=== PATIENT | female | born 1990 | race Caucasian/White ===

== ENCOUNTER 2018-08-29 14:17 | Emergency (ER) | payer MEDICAID, SELFPAY ==
[2018-08-29 14:17] VITALS: BP 149/95; PULSE 77; RESP 18; TEMP 36.5; O2SAT 100; BMI 29.9
--- NOTE | 2018-08-29 14:21 | RAD_ITS ---
STUDY: X-RAY CHEST REASON FOR EXAM: Female, 28 years old. Acute chest pain TECHNIQUE: PA and lateral views of the chest. COMPARISON: None. FINDINGS: The lungs are clear and expanded. There is no demonstrated pleural abnormality. Normal size heart. Normal mediastinum and melinda. Normal visualized pulmonary arteries. Normal visualized aortic arch and descending thoracic aorta. Normal visualized thoracic spine. Normal visualized ribs, clavicles, and shoulders. There is no demonstrated abnormality of the visualized soft tissue structures of the upper abdomen. RAD/Chest PA and Lateral IMPRESSION: Normal x-ray examination of the chest. Electronically Signed: Fritz Sanches MD at 14:50 EDT , Service support ,
--- NOTE | 2018-08-29 16:13 | EKG12_ITS ---
Test Reason : CP Blood Pressure : / mmHG Vent. Rate : 072 BPM Atrial Rate : 072 BPM P-R Int : 124 ms QRS Dur : 092 ms QT Int : 398 ms P-R-T Axes : -14 044 022 degrees QTc Int : 435 ms Normal sinus rhythm Normal ECG Confirmed by TOO ALFORD, ADOLPH ([id number]), pictures editor RODRIGUEZ JIMENEZ ([id number]) on 08/31/2018 1:34:13 PM Referred By: MAE Confirmed By:ADOLPH GAGE MD
--- NOTE | 2018-08-29 16:13 | VDLE_ITS ---
Reason For Study: PAIN RIGHT GSV is normal. CFV is compressible, spontaneous, phasic, competent and demonstrates normal augmentation. FV is compressible, spontaneous, phasic, competent and demonstrates normal augmentation. POP V is compressible, spontaneous, phasic, competent and demonstrates normal augmentation. T/P Trunk is compressible. PTV is compressible. RT PerV is compressible. Procedure Exam performed portable in ED. A preliminary report was called and/or faxed to ED. Interpretation Summary Deep veins of the right lower extremity are patent and compressible segmentally. There is no evidence of right lower extremity deep vein thrombosis. Valvular competence appears intact within the proximal deep venous system on the right . The right greater saphenous vein appears patent and compressible segmentally. Ordering Physician: Charlie Page Performed By: Devi Molina, RDCS, RVT
--- NOTE | 2018-08-29 16:14 | ED.VISSUMM ---
- ER Visit Summary Date of Service: 08/29/18 Chief Complaint: Chest pain History of Present Illness: The patient is a 28 F continuous substernal dull chest pain since last evening. Intermittent tingling into axilla and down the right fingers. Recent nonproductive cough. No nausea or diaphoresis. No recent travel, surgeries, or immobilizations. No history of PE or DVT. Reports gets charley horses and did have a right lower extremity cramp in the calf 2 days ago that resolved. No history of hypertension, hyper cholesterolemia, diabetes. No tobacco history. No family history of MIs young age. Reports was on oral contraceptives in May when she had her miscarriage. This is her second one. No known history of any clotting disorders. No family history of clotting disorders. Symptoms were improved with ibuprofen with last dose 7 AM this morning. Does report some pain with palpation. Physical Examination: General: Alert and oriented ?3, no acute distress HEENT: Normocephalic, atraumatic. Moist mucosa membranes Neck: supple, nontender. Cardiovascular: Regular rate and rhythm, no murmurs. There is reproducible sternal tenderness, no rash. Respiratory: Normal breath sounds, symmetric, no distress Abdomen: Soft, nontender, nondistended Extremities: Nontender, no edema, pulses intact ?4. There is no calf pain bilaterally no asymmetric swelling. Neuro: no focal neurological deficits. Test Results: Chest x-ray: No acute process. Right lower extremity ultrasound negative for DVT. Hemoglobin 12.2. K 3.6. Creatinine 0.60. Troponin negative. D-dimer less than 0.027. HCG negative. EKG sinus rate of [address] or T wave changes. Emergency Department Course and Treatment: Patient has atypical symptoms. Chest x-ray from triage was negative. However with her recent miscarriage no known diagnosed hypercoagulability disorders. She reports cramping right calf 2 days ago. Workup initiated from cardiac and PE standpoint. Ultrasound of the leg was negative for DVT. D-dimer was negative. Cardiac workup negative. She was treated with Toradol some improvement of symptoms. She reproducible substernal symptoms. Discussed pleurisy from her recent cough along with costochondritis. She will continue her Motrin. She is given follow-up with PCP. Heart score 1, IVIS 0. Signs and symptoms discussed return. All questions were answered. Treatment Plan: [] Disposition: Discharge Impression: 1. Atypical chest pain 2. Pleurisy 3. Costochondritis This note was generated with [employer] dictation software. It may contain incorrect words, spelling, and punctuation that were not noted in review of the chart prior to signing ED Disposition - Plan for ED Patient: Disposition: Home or Assisted Living Diagnosis: Atypical chest pain, Pleurisy, Costochondritis Instructions: ED Chest Pain Costochondritis, ED Chest Pain Pleurisy Referrals: Care Physician,No Primary [Primary Care Provider] - Clovis Rangel MD [STAFF PHYSICIAN] - 3-5 Days
[2018-08-29] MEDS: Ketorolac 30 MG/ML Syringe IV (16:23)
[2018-08-29 16:24] VITALS: BP 137/88; PULSE 86; RESP 25
[2018-08-29 17:16] LABS: Absolute Lymphocyte Count 2.18 X10^3/ul (0.83-4.51); Absolute Neutrophil Count 2.5 X10^3/uL (2.0-7.7); Basophil# 0.01 X10^3/uL; Basophil% 0.2 % (0-1); Eosinophil# 0.05 X10^3/uL; Hematocrit 37.8 % (37-47); Hemoglobin 12.2 g/dl (12.0-15.0); Lymphocyte # 2.18 X10^3/ul (4.0); Lymphocyte % 43.5 % (19-41); Mean Corp Hgb Conc 32.3 g/gl (32-36); Mean Corpuscular Hgb 28.7 pg (27.0-32.0); Mean Corpuscular Volume 88.9 fL (81-99); Mean Platelet Vol. 9.9 fl (6.2-12.0); Monocyte# 0.31 X10^3/uL; Monocyte% 6.2 % (0-10); Neutrophil # 2.45 X10^3/uL (2.7-7.7); Neutrophil % 48.9 % (47-70); Platelet Count 265 K/mm3 (150-450); RBC Distribution Width CV 13.1 % (11.6-14.6); RBC Distribution Width SD 42.2 fl (35.1-43.9); Red Blood Count 4.25 M/mm3 (4.2-5.4)
[2018-08-29 17:17] LABS: POSITIVE COUNT NO; POSITIVE DIFFERENTIAL NO; POSITIVE MORPHOLOGY NO
[2018-08-29 17:18] LABS: International Normalized Ratio 1.1; Prothrombin Time (Protime)PT. 14.1 SECONDS (11.7-14.9)
[2018-08-29 17:19] LABS: Internal QC Validated? YES +Cl - CLEAR BKGD; Pregnancy, Serum, hCG Quali. NEGATIVE Negative
[2018-08-29 17:28] LABS: D-Dimer Quantitative (DVT/PE) < 0.27 FEU/ug/m (0.27-0.49)
[2018-08-29 17:30] LABS: Anion Gap 7 (5-15); BUN 13 mg/dL (7-18); BUN/Creat Ratio 21.7 RATIO (10-20); Calcium,Total 8.6 mg/dL (8.5-10.1); Chloride 108 mmol/L (98-107); EST Glomerular Filtration Rate 125 mL/min (>60); Est Glom Filt Rate - Afr Amer 151 mL/min (>60); Estimated Creatinine Clearance 123.37 ml/min; Glucose 89 mg/dL (74-106); Potassium 3.6 mmol/L (3.5-5.1); Sodium Level 140 mmol/L (136-145)
[2018-08-29 18:11] VITALS: BP 129/92; PULSE 84; PULSE 88; RESP 14; RESP 21; O2SAT 99
[2018-08-29 19:11] VITALS: BP 133/65; PULSE 72; RESP 17; O2SAT 100
--- NOTE | 2018-08-29 19:11 | ED.RN ---
IV DC'ED, CATHETER INTACT, SMALL GAUZE DRESSING PLACED. DISCHARGE INSTRUCTIONS GIVEN TO AND REVIEWED WITH PATIENT, PATIENT DENIES QUESTIONS OR CONCERNS AND VOICES UNDERSTANDING OF DISCHARGE INSTRUCTIONS. PT AMBULATES OUT OF ROOM WITHOUT DIFFICULTY.
== END 2018-08-29 19:12 | disposition home or self-care (01) ==
PROVIDERS: Emergency Provider Emergency Medicine
DX: R09.1 Pleurisy (principal); M94.0 Chondrocostal junction syndrome [Tietze]; R07.89 Other chest pain
CPT/HCPCS: 71046; 80048; 84484; 84703; 85025; 85379; 85610; 85730; 93005; 93971; 96374; 99283; A4216

== ENCOUNTER → 2018-09-09 | Outpatient (CLI) | payer MEDICAID, SELFPAY ==
[2018-09-08 16:04] VITALS: BMI 29.9
== END | disposition home or self-care (01) ==
LOC: LABSPEC 13:52
PROVIDERS: Referring Provider Physician Assistant; Visit Provider Physician Assistant
DX: J02.9 Acute pharyngitis, unspecified (principal)
CPT/HCPCS: 87081

== ENCOUNTER 2018-12-16 09:14 | Emergency (ER) | payer MEDICAID, SELFPAY ==
[2018-09-08 16:04] VITALS: BMI 29.9
[2018-12-16 09:16] VITALS: BP 120/71; PULSE 73; RESP 17; TEMP 36.8; O2SAT 100; BMI 33.0
--- NOTE | 2018-12-16 09:44 | ED.VISSUMM ---
- ER Visit Summary Date of Service: 12/16/18 Chief Complaint: Nausea and vomiting History of Present Illness: The patient is a 28 F presenting with nausea and vomiting. Patient is 8 weeks . She states she had nausea throughout the but now has vomiting and diarrhea as well. She denies vaginal bleeding. She is G6, P2 AB 3. She was advised by her HUMAN FACTORS SCIENTIST to come into the ED for fluids and evaluation. Physical Examination: Vitals are stable. Patient is afebrile. Alert no acute distress. HEENT exam is unremarkable. Neck is supple. Lungs are clear and equal bilaterally. Heart is regular rate and rhythm. Abdomen is soft mild diffuse tenderness, no rebound or guarding. Extremities are unremarkable. Skin is warm and dry. Remainder of exam is unremarkable. Emergency Department Course and Treatment: Patient given IV fluids, Phenergan. Basic metabolic panel is unremarkable. Blood type A positive. hCG quant [id number]. Ultrasound shows Single live uterine gestation with a mean gestational age of 8 weeks and 4 days. 2 cm x 2.1 cm x 2.2 cm cyst in the right ovary. heart rate 154. Patient is feeling improved on reevaluation. Discussed with Dr. Henson. Patient will follow-up as scheduled. She is given a prescription for Phenergan. Advised to return to the ED for worsening complaints. Disposition: Discharge home Impression: Vomiting, diarrhea, This note was generated with [employer] dictation software. It may contain incorrect words, spelling, and punctuation that were not noted in review of the chart prior to signing ED Disposition - Plan for ED Patient: Instructions: Care for a Healthy Baby Prescriptions: proMETHazine tablet [Phenergan] 25 mg PO Q6H PRN PRN #10 tab PRN Reason: Nausea Prescription Printed Referrals: Mary Bryan MD [STAFF PHYSICIAN] -
[2018-12-16 10:26] LABS: Anion Gap 7 (5-15); BUN 6 mg/dL (7-18); BUN/Creat Ratio 12.4 RATIO (10-20); Calcium,Total 8.6 mg/dL (8.5-10.1); Chloride 108 mmol/L (98-107); Creatinine, Serum 0.48 mg/dL (0.55-1.02); EST Glomerular Filtration Rate 160 mL/min (>60); Est Glom Filt Rate - Afr Amer 194 mL/min (>60); Estimated Creatinine Clearance 154.21 ml/min; Glucose 92 mg/dL (74-106); Sodium Level 138 mmol/L (136-145)
[2018-12-16] MEDS: proMETHazine 25 MG/ML Syringe 6.25 MG IV (10:30)
[2018-12-16] MEDS: 0.9% Normal Saline 1,000 ML 999 ML IV (10:31)
--- NOTE | 2018-12-16 10:51 | US_ITS ---
STUDY: FIRST TRIMESTER OBSTETRICAL ULTRASOUND REASON FOR EXAM: Female, 28 years old. Pain/cramping. LMP: October 15, 2018. TECHNIQUE: Transvaginal TECHNICAL QUALITY: Adequate. PRIOR ULTRASOUND: None. FINDINGS: There is visualization of a single gestational sac in a normal intrauterine position. The mean sac diameter (MSD) measures 3.4 mm x 5.2 mm x 1.6 mm, indicating an estimated gestational age (EGA) of 8 weeks, 6 days. The gestational sac shape is within normal limits. There is a visualized yolk sac. The yolk sac measures 5.1 mm. The placenta is non-visualized. There is visualization of a live embryo. The crown-rump length (CRL) measures 1.94 cm, indicating an estimated gestational age (EGA) of 8 weeks, 4 days. There is demonstrated cardiac activity with a heart rate of bpm. The estimated gestation age (EGA) by LMP is 8 weeks, 6 days. The estimated date of delivery (TERI) by LMP is July 22, 2019. The estimated gestation age (EGA) by US is 8 weeks, 4 days. The estimated date of delivery (TERI) by US is July 23, 2019. The uterus measures 9.2 cm x 6.1 cm x 7.5 cm. There is no demonstrated uterine fibroid. The cervix is closed. The right ovary measures 4.8 cm x 2.9 cm x 2.9 cm. There is a 2 cm x 2.1 cm x 2.2 cm cyst within the ovary. There is no visualized right adnexal mass or complex lesion. The left ovary measures 3.7 cm x 2.3 cm x 1.7 cm.. There is no left ovarian cyst. There is no visualized left adnexal mass or complex lesion. There is no fluid in the cul de sac. US/Transvaginal w/Preg US IMPRESSION: Single live uterine gestation with a mean gestational age of 8 weeks and 4 days. 2 cm x 2.1 cm x 2.2 cm cyst in the right ovary. Electronically Signed: Jhonathan Butler, at 14:41 EDT , Service support ,
--- NOTE | 2018-12-16 15:03 | ED.DEP ---
ED Disposition - Plan for ED Patient: Instructions: Care for a Healthy Baby Prescriptions: proMETHazine tablet [Phenergan] 25 mg PO Q6H PRN PRN #10 tablet PRN Reason: Nausea Referrals: Mary Bryan MD [STAFF PHYSICIAN] -
== END 2018-12-16 15:25 | disposition home or self-care (01) ==
LOC: ED 09:46
PROVIDERS: Emergency Provider Emergency Medicine
DX: O26.891 Other specified pregnancy related conditions, first trimester (principal); R19.7 Diarrhea, unspecified; O21.9 Vomiting of pregnancy, unspecified; O34.81 Maternal care for other abnormalities of pelvic organs, first trimester; N83.201 Unspecified ovarian cyst, right side; Z3A.08 8 weeks gestation of pregnancy
CPT/HCPCS: 76817; 80048; 84702; 86900; 86901; 96361; 96374; 99283; J7030; A4216

== ENCOUNTER 2019-03-06 02:40 | Outpatient (CLI) | payer MEDICAID, SELFPAY ==
[2019-01-16 17:49] VITALS: BMI 33.0
[2019-03-06 02:57] VITALS: BMI 34.9
[2019-03-06 03:48] LABS: ROM Internal Control Test YES-OK TO RESULT pt. (Internal QC); ROM Patient Test Negative (Negative)
--- NOTE | 2019-03-22 13:12 | OB.TRI.NOTE ---
History of Present Illness Date of Service: 03/06/19 Was patient seen by the physician?: No Reason For Visit: R/O LABOR Date of Service: 03/06/19 Final TERI: 07/22/19 Gestational age: 20 weeks gestation Allergies prednisone Allergy (Verified 01/16/19 17:49) Swelling Seasonal Allergy (Mild, Uncoded 01/16/19 17:49) unknown - Pertinent Past Medical History Medical History: Past Medical History (Last Reviewed 01/16/19 @ 17:49 by Asmita Camejo) History of wisdom tooth extraction Laboratory Studies: Laboratory Tests 03/06/19 Range/Units 03:00 Vag Amniotic Fld Detect Negative (Negative) NST - FHR Rate Baby A Baseline: + Fhts by doppler Impression/Plan 28-year-old avid 6 para 2 20+ gestational weeks for rule out rupture membranes. Vaginal discharge in . No evidence of spontaneous rupture of membranes or labor. Patient was discharged home with routine instructions. She is to follow-up in the office as scheduled or as needed.
== END 2019-03-06 04:05 | disposition home or self-care (01) ==
LOC: WPOUT 02:44 → WP 02:44
PROVIDERS: Visit Provider Obstetrics & Gynecology
DX: O26.892 Other specified pregnancy related conditions, second trimester (principal); N89.8 Other specified noninflammatory disorders of vagina; Z3A.20 20 weeks gestation of pregnancy
CPT/HCPCS: 84112; 99218; G0378

== ENCOUNTER 2019-06-07 17:25 | Outpatient (CLI) | payer MEDICAID, SELFPAY ==
[2019-04-01 11:04] VITALS: BMI 34.9
[2019-06-07 17:42] VITALS: BMI 37.1
--- NOTE | 2019-06-08 08:49 | OB.TRI.NOTE ---
- Problem List (1) 33 weeks gestation of Status: Acute (2) Multiparous Status: Acute (3) Abdominal pain Status: Acute History of Present Illness Date of Service: 06/07/19 Was patient seen by the physician?: Yes Reason For Visit: CRAMPING Final TERI: 07/22/19 Gestational age: 33 Weeks and 5 Days History of Present Illness: at 33 week gestation presents with sharp shooting vaginal pain. Denies contractions, vaginal bleeding, loss of fluid. Good movement. Allergies prednisone Allergy (Verified 06/07/19 17:43) Swelling Seasonal Allergy (Mild, Uncoded 04/01/19 11:02) unknown - Pertinent Past Medical History Surgical History: Past Surgical History (Last Reviewed 04/01/19 @ 11:04 by Asmita Camejo) History of wisdom tooth extraction NST - FHR Rate Baby A Baseline: 130 Variability:: Moderate Accelerations:: 15 x 15 Decelerations:: None NST Reactive:: Yes FHR Category:: Category I Uterine Activity:: Quiet Impression/Plan Cvx c/t/h NST reactive and reassuring Not in PTL Reviewed pain in and when to call D/c home w/ f/u in office
== END 2019-06-07 18:30 | disposition home or self-care (01) ==
LOC: WPOUT 17:30 → OBT 17:31
PROVIDERS: Referring Provider Obstetrics & Gynecology; Visit Provider Obstetrics & Gynecology
DX: O26.893 Other specified pregnancy related conditions, third trimester (principal); R10.2 Pelvic and perineal pain; Z3A.33 33 weeks gestation of pregnancy
CPT/HCPCS: 59025; 59050; 99218; G0378

== ENCOUNTER 2019-06-13 12:25 | Outpatient (CLI) | payer MEDICAID, SELFPAY ==
[2019-06-13 12:15] VITALS: BP 133/71; TEMP 36.7; BMI 20.9
== END 2019-06-13 12:55 | disposition home or self-care (01) ==
LOC: WPOUT 12:35 → WP 12:36
PROVIDERS: Referring Provider Obstetrics & Gynecology; Visit Provider Obstetrics & Gynecology
DX: Z00.00 Encounter for general adult medical examination without abnormal findings (principal)
CPT/HCPCS: 99218; G0378

== ENCOUNTER 2019-06-13 13:23 | Emergency (ER) | payer MEDICAID, SELFPAY ==
[2019-06-13 12:15] VITALS: BMI 20.9
[2019-06-13 13:24] VITALS: BP 148/82; PULSE 89; RESP 16; TEMP 36.6; O2SAT 99; BMI 37.0
--- NOTE | 2019-06-13 13:30 | ED.RN ---
pt initally triaged. and triggered consulted with er dr when then was taken to OB fro evaluation. she is 34 weeks with sudden onset headache and blurred vision. bp is again elevated in triage. dr hernandez aware.
[2019-06-13 14:00] VITALS: BP 119/70; PULSE 81; RESP 22; O2SAT 99
[2019-06-13 14:09] LABS: Mucous, Urine 0 SEEN /hpf (<or=2+); Red Blood Cells-Urine 0 SEEN /hpf (0-5)
[2019-06-13] MEDS: 0.9% Normal Saline 1,000 ML 1000 ML IV (14:11)
[2019-06-13] MEDS: Metoclopramide 10 MG/2 ML Vial IV (14:11)
[2019-06-13 14:12] LABS: Absolute Lymphocyte Count 2.02 X10^3/uL (0.83-4.51); Absolute Neutrophil Count 6.5 X10^3/uL (2.0-7.7); Basophil# 0.01 X10^3/uL; Basophil% 0.1 % (0-1); Eosinophil# 0.06 X10^3/uL; Eosinophils% 0.7 % (0-5); Hematocrit 35.9 % (37-47); Hemoglobin 11.7 g/dL (12.0-15.0); Lymphocyte # 2.02 X10^3/ul (4.0); Lymphocyte % 22.2 % (19-41); Mean Corp Hgb Conc 32.6 g/dL (32-36); Mean Corpuscular Volume 89.1 fL (81-99); Mean Platelet Vol. 9.5 fl (6.2-12.0); Monocyte% 5.5 % (0-10); NRBC Flagged by Analyzer 0 % (0-5); Neutrophil # 6.47 X10^3/uL (2.7-7.7); Neutrophil % 71.1 % (47-70); Platelet Count 236 K/mm3 (150-450); RBC Distribution Width CV 12.8 % (11.6-14.6); RBC Distribution Width SD 41.9 fl (35.1-43.9); Red Blood Count 4.03 M/mm3 (4.2-5.4); White Blood Count 9.1 K/mm3 (4.4-11.0)
[2019-06-13] MEDS: DiphenhydrAMINE 50 MG/ML Syringe 25 MG IV (14:12)
[2019-06-13 14:21] LABS: Color, Urine Yellow (Yellow); Glucose, Dipstick Normal (Normal); Leukocyte Esterase-Dipstick 100 /ul (Negative); Nitrite-Dipstick Negative (Negative); Occult Blood-Urine Negative /ul (Negative); Protein-Dipstick Negative (Negative); Specific Gravity, Urine 1.015 (1.002-1.030); Urine Bilirubin Dipstick Negative (Negative); Urine Clarity Clear (Clear); Urine Urobilinogen Normal (Normal); Urine pH 6.5 (5.0 - 8.0)
[2019-06-13 14:26] LABS: Ketone-Dipstick 150 mg/dl (Negative)
[2019-06-13 14:29] LABS: ALB/GLOB Ratio 0.7 RATIO (0.9-2.4); AST(SGOT) 12 U/L (15-37); Alanine Aminotransfer ALT/SGPT 19 U/L (13-56); Albumin, Serum 3.2 g/dL (3.2-5.0); Alkaline Phosphatase 140 U/L (45-117); Anion Gap 9 (5-15); BUN 5 mg/dL (7-18); BUN/Creat Ratio 9.9 RATIO (10-20); Calcium,Total 9.1 mg/dL (8.5-10.1); Chloride 104 mmol/L (98-107); EST Glomerular Filtration Rate 152 mL/min (>60); Est Glom Filt Rate - Afr Amer 184 mL/min (>60); Estimated Creatinine Clearance 148.04 ml/min; Globulin 4.5 g/dL (2.2-4.2); Glucose 76 mg/dL (74-106); Potassium 3.6 mmol/L (3.5-5.1); Protein, Total 7.7 g/dL (6.4-8.2); Sodium Level 137 mmol/L (136-145)
[2019-06-13 14:30] VITALS: BP 121/72; PULSE 80; RESP 26; O2SAT 98
[2019-06-13 14:31] LABS: Bacteria 1+ /hpf (None Seen); Squamous Epithelial Cells - UA 0-5 SEEN /hpf (5-10); White Blood Cells 10-25 SEEN /hpf (0-5)
--- NOTE | 2019-06-13 15:06 | ED.VISSUMM ---
- ER Visit Summary Date of Service: 06/13/19 Chief Complaint: [Headache] History of Present Illness: The patient is a 28 F [presents the emergency department with complaint of a headache that started around 11 AM. Patient states the pain came on suddenly. Patient describes it as frontal. Rates it about a 4 5 out of 10. Patient called her HYDROMETEOROLOGY TEACHER because initially the headache started with some blurred vision where she felt like #a blended together. Patient does get frequent headaches. She has had history of migraines. This feels different than other migraines she has had. Patient is concerned because she is and she was worried about eclampsia. She is never had preeclampsia before and she is G6, P2. Patient initially presented to the emergency department then went up to OB where they checked her blood pressure and noted that it was in the 120 systolic so they referred her back to the emergency department.] Physical Examination: [HEENT-PERRLA, EOMI. Cranial nerves II through XII grossly intact. TMs clear. Mucous membranes moist. No adenopathy. Cardiovascular-regular rate and rhythm without murmur or ectopy Lungs-clear to auscultation, chest wall stable without crepitus or subcu emphysema Abdomen-normoactive bowel sounds, soft, nontender, no rebound or rigidity, no peritoneal signs. Extremities-intact ?4, normal range of motion, normal pulses, atraumatic] Test Results: [CBC with differential obtained was normal. Chemistries unremarkable. LFTs were unremarkable. Urinalysis was positive for 10-25 WBCs and +1 bacteria. Urine culture was sent.] heart tones were 162. Emergency Department Course and Treatment: [Patient was medicated with Reglan, Benadryl, and a liter mostly fluid bolus. Her headache is starting to improve significantly. Patient was given Rocephin 1 g IV.] Treatment Plan: [Plan will be to have patient follow-up with her primary care physician 3 to 5 days. I will treat her with Keflex. She is advised to push fluids and return if worsening headache, difficulty with vision, or condition should worsen anyway. At this point I do not feel any imaging is indicated and I discussed this with the patient about potentially obtaining imaging such as CT scan of the brain and possibly MRV to rule out dural venous sinus thrombosis however my suspicion for this is low at this time. If her symptoms persist she may need further imaging. I will discuss with her HYDROMETEOROLOGY TEACHER as well.] Disposition: [Discharged home in stable condition] Impression: [Cephalgia UTI] This note was generated with [employer] dictation software. It may contain incorrect words, spelling, and punctuation that were not noted in review of the chart prior to signing ED Disposition - Plan for ED Patient: Referrals: Care Physician,No Primary [Primary Care Provider] -
--- NOTE | 2019-06-13 15:13 | ED.DEP ---
ED Disposition - Plan for ED Patient: Instructions: HEADACHE, Unspecified, Understanding Urinary Tract Infections (UTIs) Prescriptions: Cephalexin [Keflex] 500 mg PO Q6 #28 cap Transmission Status: Pending to [facility] Referrals: Care Physician,No Primary [Primary Care Provider] - Mary Bryan MD [STAFF PHYSICIAN] - 3-5 Days
[2019-06-13] MEDS: Ceftriaxone 1 GM/50 ML BAG IV (15:22)
[2019-06-13 15:47] VITALS: BP 121/67; PULSE 77; RESP 16; O2SAT 100
== END 2019-06-13 15:49 | disposition home or self-care (01) ==
LOC: ED 13:52
PROVIDERS: Emergency Provider Emergency Medicine
DX: O26.893 Other specified pregnancy related conditions, third trimester (principal); R51 Headache; O23.43 Unspecified infection of urinary tract in pregnancy, third trimester; Z3A.34 34 weeks gestation of pregnancy
CPT/HCPCS: 80053; 81001; 85025; 87086; 87088; 96361; 96374; 96375; 99218; 99284; J7030; J7040; A4216; G0378

== ENCOUNTER 2019-06-22 09:45 | Outpatient (CLI) | payer MEDICAID, SELFPAY ==
[2019-06-22 10:04] VITALS: BMI 37.0
[2019-06-22 10:39] LABS: ROM Internal Control Test YES-OK TO RESULT pt. (Internal QC)
[2019-06-22 10:40] LABS: ROM Patient Test Negative (Negative)
--- NOTE | 2019-06-22 11:18 | US_ITS ---
STUDY: SECOND AND THIRD TRIMESTER OBSTETRICAL ULTRASOUND REASON FOR EXAM: Female, 28 years old URIAH ONLY LMP: October 15, 2018. TECHNIQUE: Transabdominal TECHNICAL QUALITY: Adequate. PRIOR ULTRASOUND: Comparison is made with prior study dated December 16, 2018. FINDINGS: There is a single intrauterine fetus. The fetus is in a cephalic presentation. There is demonstrated cardiac activity with a heart rate of 140 bpm. There is a normal amniotic fluid volume. The largest amniotic fluid pocket measures 2.77 cm. The amniotic fluid index (URIAH) is 6.9 cm. The placenta is anterior in location and is not low lying. There are Grade 0 placental changes. The cervix was not measured. The adnexal regions are not visualized. US/OB Limited (No Biometrics) IMPRESSION: The amniotic fluid index measures in the 2.5 percentile. Electronically Signed: Jhonathan Butler, at 14:55 EST , Service support ,
--- NOTE | 2019-06-22 13:36 | OB.TRI.HP_ITS ---
- Problem List (1) 35 weeks gestation of Status: Acute (2) Vaginal discharge during Status: Acute History of Present Illness Date of Service: 06/22/19 Was patient seen by the physician?: Yes Reason For Visit: RULE OUT LABOR Final TERI: 06/23/19 Gestational age: 39 Weeks and 6 Days History of Present Illness: Presented to the office complaining of pelvic pressure and possible leaking of fluid. No gush of fluid. She states her underwear has felt wet. She is unsure about contractions. movement. In the office she had no pooling on exam, positive nitrazine, negative ferning. Cervix was 1 thick and high. URIAH on ultrasound was 6.5 cm. She was sent over to labor and delivery for mon itoring and further testing. Allergies prednisone Allergy (Verified 06/07/19 17:43) Swelling Seasonal Allergy (Mild, Uncoded 04/01/19 11:02) unknown - Pertinent Past Medical History Surgical History: Past Surgical History (Last Reviewed 04/01/19 @ 11:04 by Asmita Camejo) History of wisdom tooth extraction Laboratory Studies: Laboratory Tests 06/22/19 Range/Units 10:05 Vag Amniotic Fld Detect Negative (Negative) NST - FHR Rate Baby A Baseline: 120 Variability:: Moderate Accelerations:: 15 x 15 Decelerations:: None NST Reactive:: Yes Uterine Activity:: Irritability Impression/Plan Positive nitrazine but negative fern in the office. URIAH was low normal. NST reactive. ROM plus test was negative. URIAH the hospital was 6.8 cm. The patient notes a history of oligohydramnios. We will plan for repeat growth and fluid next week. Discussed return precautions.
== END 2019-06-22 13:30 | disposition home or self-care (01) ==
LOC: WPOUT 09:51 → WP 09:52
PROVIDERS: Referring Provider Obstetrics & Gynecology; Visit Provider Obstetrics & Gynecology
DX: O26.893 Other specified pregnancy related conditions, third trimester (principal); N89.8 Other specified noninflammatory disorders of vagina; Z3A.39 39 weeks gestation of pregnancy
CPT/HCPCS: 59025; 59050; 76815; 84112; 99218; G0378

== ENCOUNTER 2019-07-16 17:08 | Inpatient (IN) | payer MEDICAID, SELFPAY ==
[2019-07-16] VITALS (75 sets, daily range): BP systolic 109–130; BP diastolic 56–87; PULSE 8–118; TEMP 36.1–36.8; O2SAT 81–100; BMI 37.4
--- NOTE | 2019-07-16 17:25 | PCM.HP.OB ---
- Problem List (1) Active labor at term Status: Acute (2) History of recurrent miscarriages Status: Acute (3) History of depression Status: Acute (4) Anxiety during Status: Acute (5) At risk for self harm Status: Acute History Date of Admission: 07/16/19 Final TERI: 07/22/19 Gestational age: 39 Weeks and 1 Days History of this : This is a 29 year-old, G [6], P [2031], at 39w1d gestational age who presents for regular contractions. Upon arrival no initial cervical change but then progressed to 5cm and admitted for active labor. Offers no other complaints today. course complicated by history of recurrent miscarriage, anxiety with thoughts of self mutilation during the and history of depression. Surgical History: Surgical History (Last Reviewed 04/01/19 @ 11:04 by Asmita Camejo) History of wisdom tooth extraction K08.499 Allergies prednisone Allergy (Verified 07/16/19 14:51) Swelling Seasonal Allergy (Mild, Uncoded 04/01/19 11:02) unknown Home Medications: Home Medications Multivitamin Tablet 1 tab PO DAILY 12/16/18 Cholecalciferol (Vitamin D3) [Vitamin D3] 2,000 unit PO DAILY 03/06/19 Citalopram Hydrobromide [Citalopram HBr] 10 mg PO DAILY 06/07/19 Cephalexin [Keflex] 500 mg PO Q6 #28 cap 06/13/19 Smoking Status: Never smoker Alcohol: None Number of Fetus(es): 1 NST - FHR Rate Baby A Baseline: 120 Variability:: Moderate Accelerations:: 15 x 15 Decelerations:: None FHR Category:: Category I Uterine Activity:: every 3 minutes, moderate History Past Pregnancies: Past Pregnancies Delivery Date Name GA/ Weeks Outcome Route Wt Infant Sex Labor Length Anesthesia Delivery Location Provider FOB Expected Infant Delivery Method: Spontaneous Vaginal Review of Systems Constitutional: Denies: Chills, Fever, Weight Change Eyes: Denies: Blurred vision HEENT: Denies: Head Aches, Sinus Congestion, Sinus Drainage Cardiovascular: Denies: Chest Pain, Palpitations Respiratory: Denies: Cough, Shortness of breath at rest, Sputum production Gastrointestinal: Denies: Abdominal Pain, Nausea, Vomiting Genitourinary: Denies: Dysuria Psychiatric: Denies: Anxiety, Depression, Homicidal Ideations, Suicidal Ideations Physical Exam Vitals: Vital Signs Temp Pulse BP Pulse Ox 98.2 F 89 130/87 H 98 07/16/19 14:36 07/16/19 16:43 07/16/19 14:36 07/16/19 16:43 General: Alert, Oriented x3, Cooperative HEENT: Atraumatic, Normocephalic Cardiovascular: Regular rate, Regular Rhythm, No murmurs Lungs: Clear to auscultation, Normal air movement, No rhonchi, No wheeze Abdomen: Bowel Sounds Present, Gravid Extremities:: No edema Neurological: Deep Tendon Reflexes 2+/4 and Symmetrical. Negative for: Clonus COMMUNICATIONS SCIENTIST: Normal external genitalia Estimated gestational size: Appropriate for gestational size Presentation: Cephalic Cervix Dilation (cm): 5 Station: -2 Effacement (%): 80 Assessment/Plan All Active Problems (Last Reviewed 04/01/19 @ 11:04 by Asmita Camejo) 33 weeks gestation of (Acute) Multiparous (Acute) Abdominal pain (Acute) 35 weeks gestation of (Acute) Vaginal discharge during (Acute) Active labor at term (Acute) History of recurrent miscarriages (Acute) History of depression (Acute) Anxiety during (Acute) At risk for self harm (Acute) Pharyngitis (Acute) URI (upper respiratory infection) (Acute) Sinusitis (Acute) Otitis media (Acute) Gastroenteritis (Acute) This is a 29 year-old, G [6], P [2031], at 39w1d gestational age A:Active Labor P: 1) Admit to labor and delivery 2) Routine labs 3) Intermittent auscultation, initial EFM Category 1 and reactive 4) Patient desires unmedicated , ok for shower and nitrous oxide 5) notified of admission and labor status.
[2019-07-16] MEDS: Lactated Ringers 1,000 ML 50 ML IV (17:50)
[2019-07-16 18:12] LABS: Absolute Lymphocyte Count 2.21 X10^3/uL (0.83-4.51); Absolute Neutrophil Count 8.9 X10^3/uL (2.0-7.7); Basophil# 0.02 X10^3/uL; Basophil% 0.2 % (0-1); Eosinophil# 0.08 X10^3/uL; Eosinophils% 0.7 % (0-5); Hematocrit 34.7 % (37-47); Hemoglobin 11.3 g/dL (12.0-15.0); Lymphocyte # 2.21 X10^3/ul (4.0); Lymphocyte % 18.4 % (19-41); Mean Corp Hgb Conc 32.6 g/dL (32-36); Mean Corpuscular Hgb 28.8 pg (27.0-32.0); Mean Corpuscular Volume 88.3 fL (81-99); Mean Platelet Vol. 9.6 fl (6.2-12.0); Monocyte% 5.8 % (0-10); NRBC Flagged by Analyzer 0 % (0-5); Neutrophil # 8.92 X10^3/uL (2.7-7.7); Neutrophil % 74.5 % (47-70); Platelet Count 222 K/mm3 (150-450); RBC Distribution Width CV 12.9 % (11.6-14.6); RBC Distribution Width SD 41.4 fl (35.1-43.9); Red Blood Count 3.93 M/mm3 (4.2-5.4)
[2019-07-16] MEDS: Ondansetron 4 MG/2 ML Vial IV (18:25)
[2019-07-16] MEDS: proCHLORPERazine 10 MG/2 ML Vial IV (18:52)
--- NOTE | 2019-07-16 20:24 | PCM.PN.OB ---
Patient Problems: Active and Suspected Problems (Last Reviewed 04/01/19 @ 11:04 by Asmita Camejo) Active labor at term (Acute) History of recurrent miscarriages (Acute) History of depression (Acute) Anxiety during (Acute) At risk for self harm (Acute) Subjective: Laying on right side in bed, using nitrous for pain relief. at bedside. Objective: FHR 140, moderate variability, accels TOCO: Every 2 minutes, strong VE: 7/80/0, AROM for small amount of clear fluid - Physical Exam Vitals/I&O's: Vital Signs Temp Pulse BP Pulse Ox 97.6 F L 101 H 111/65 100 07/16/19 19:42 07/16/19 20:22 07/16/19 18:06 07/16/19 20:22 Weight: 225 lb Body Mass Index (BMI) 37.4 Laboratory Results 07/16/19 17:50: WBC 12.0 H, RBC 3.93 L, Hgb 11.3 L, Hct 34.7 L, MCV 88.3, MCH 28.8, MCHC 32.6, RDW Std Deviation 41.4, RDW Coeff of Giselle 12.9, Plt Count 222, MPV 9.6, Immature Gran % (Auto) 0.400, Neut % (Auto) 74.5 H, Lymph % (Auto) 18.4 L, Divide % (Auto) 5.8, Eos % (Auto) 0.7, Baso % (Auto) 0.2, Absolute Neuts (auto) 8.9 H, Absolute Lymphs (auto) 2.21, Nucleated RBC % 0 07/16/19 17:50: Blood Type A POSITIVE, Antibody Screen NEGATIVE Current Medications Acetaminophen (Tylenol) 325 - 650 mg PO Q4H PRN PRN PRN Reason: Pain Score 1-3/10 Al Hydroxide/Mg Hydroxide (Mylanta Ii) 15 - 30 ml PO Q4H PRN PRN PRN Reason: INDIGESTION Citric Acid/Sodium Citrate (Bicitra) 30 ml PO X1 PRN PRN Reason: Section Fentanyl Citrate (Sublimaze (100mcg Ampule)) 25 - 50 mcg IV Q2H PRN PRN PRN Reason: Pain Score 4-10/10 Lactated Ringer's () 500 mls @ 999 mls/hr IV .Q31M PRN PRN Reason: Epidural Lactated Ringer's () 500 mls @ 999 mls/hr IV .Q31M PRN PRN Reason: Corrective Measures Lactated Ringer's () 1,000 mls @ 50 mls/hr IV .Q20H NE Last Admin: 07/16/19 17:50 Dose: 50 mls/hr Documented by: Ondansetron HCl (Zofran) 4 mg IV Q4H PRN PRN PRN Reason: NAUSEA Last Admin: 07/16/19 18:25 Dose: 4 mg Documented by: Prochlorperazine Edisylate (Compazine Iv) 10 mg IV Q6H PRN PRN PRN Reason: NAUSEA Last Admin: 07/16/19 18:52 Dose: 10 mg Documented by: Sodium Chloride () 10 - 40 ml IV X1 PRN PRN Reason: SALINE FLUSH Medical Necessity - Tobacco Use Smoking Status: Never smoker Assessment/Plan All Active Problems (Last Reviewed 04/01/19 @ 11:04 by Asmita Camejo) 33 weeks gestation of (Acute) Multiparous (Acute) Abdominal pain (Acute) 35 weeks gestation of (Acute) Vaginal discharge during (Acute) Active labor at term (Acute) History of recurrent miscarriages (Acute) History of depression (Acute) Anxiety during (Acute) At risk for self harm (Acute) Pharyngitis (Acute) URI (upper respiratory infection) (Acute) Sinusitis (Acute) Otitis media (Acute) Gastroenteritis (Acute) A:Active labor progressing Category 1 FHT P: 1) AROM 2) Nitrous for pain management 3) Continuous bedside labor support 4) updated on patient status
[2019-07-16] MEDS: Oxytocin 30 units/NS 500 ml 30 UNITS/500 ML IV.SOLN 334 UNITS IV (21:15)
--- NOTE | 2019-07-16 21:29 | PCM.OPRPT ---
Problem List (1) Active labor at term Status: Acute (2) History of recurrent miscarriages Status: Acute (3) History of depression Status: Acute (4) Anxiety during Status: Acute (5) At risk for self harm Status: Acute (6) Vaginal delivery Status: Acute Vaginal Delivery Maternal Presentation: Active Labor Amniotic Membrane Rupture Type: Artificial Amniotic Fluid Description: Clear Final TERI: 07/22/19 Gestational age: 39 Weeks and 1 Days Date of Procedure: 07/16/19 Pre-Operative Diagnosis: Active Labor Post-Operative Diagnosis: Surgery/ Procedure Performed: Spontaneous Vaginal Delivery Type of Anesthesia: None Description of Procedure: Progressed to completed with strong urge to push. of viable female infant over intact perineum unmedicated. APGARS 8,9. Infant head delivered with body forthcoming. Placed immediately skin to skin on maternal abdomen. Pitocin started for active 3rd stage management. Spontaneous cry, mouth and nares suctioned for secretions. Cord clamped and cut after pulsations ceased by FOB. Placenta delivered spontaneously via bonny, intact, 3 vessel cord. Perineum inspected and intact, no laceration or repair needed. Fundus firm, vaginal sweep completed. EBL 300ml, hemostasis achieved. Sponge and instrument count correct. Family bonding well. Mom and baby stable. notified of delivery. Presentation: Vertex Placental Delivery Description: Spontaneous Placenta Disposition: [facility] Cord Vessel Description: 3 Vessels Cord Entanglement: None Estimated Blood Loss: 300 ml A gender: Female (1 minute): 8 (5 minute): 9 Episiotomy Description: None Laceration: None Medications given after delivery: IV Pitocin Complications: None
[2019-07-16] MEDS: Ibuprofen 600 MG Tablet PO (22:26)
[2019-07-16] MEDS: Citalopram 10 MG Tablet PO (22:44)
[2019-07-17] VITALS (8 sets, daily range): BP systolic 111–137; BP diastolic 58–81; PULSE 64–87; RESP 18; TEMP 36.3–37; O2SAT 98–100
[2019-07-17] MEDS: Acetaminophen 500 MG Tablet 1000 MG PO (03:56)
[2019-07-17 06:31] LABS: Hematocrit 32.5 % (37-47); Hemoglobin 10.8 g/dL (12.0-15.0); Mean Corp Hgb Conc 33.2 g/dL (32-36); Mean Corpuscular Hgb 29.2 pg (27.0-32.0); Mean Corpuscular Volume 87.8 fL (81-99); Mean Platelet Vol. 9.5 fl (6.2-12.0); Platelet Count 213 K/mm3 (150-450); RBC Distribution Width CV 12.8 % (11.6-14.6); RBC Distribution Width SD 40.9 fl (35.1-43.9); White Blood Count 14.4 K/mm3 (4.4-11.0)
[2019-07-17] MEDS: Ibuprofen 600 MG Tablet PO ×3 (07:53→21:10)
[2019-07-17] MEDS: Prenatal Vits Tablet 1 TABLET PO (07:54)
--- NOTE | 2019-07-17 09:05 | PN.OBGYN_ITS ---
Patient Problems: Active and Suspected Problems (Last Reviewed 04/01/19 @ 11:04 by Asmita Camejo) Active labor at term (Acute) History of recurrent miscarriages (Acute) History of depression (Acute) Anxiety during (Acute) At risk for self harm (Acute) Vaginal delivery (Acute) Subjective: Doing well. Ambulating and voiding without difficulty. Tolerating regular diet. She denies lightheadedness, dizziness, chest pain, shortness of breath, leg pain. Lochia normal. She is breast-feeding. - Physical Exam Vitals/I&O's: Vital Signs Temp Pulse Resp BP Pulse Ox 97.6 F L 64 18 125/77 H 98 07/17/19 07:39 07/17/19 07:39 07/17/19 07:39 07/17/19 07:39 07/17/19 04:03 Oxygen Delivery Method Room Air Weight: 225 lb Body Mass Index (BMI) 37.4 Intake and Output for Last 24 Hours 07/15/19 07/16/19 07/17/19 22:59 23:59 23:59 Intake Total Output Total 400 / 400 Balance -400 / -400 General: Alert, No apparent distress HEENT: Atraumatic Abdomen: Soft, Non Tender, - - FF@U-1 Extremities: No Calf Tenderness Skin: No rashes Neurological: Neuro grossly intact Psych/Mental Status: Normal Affect, Appropriate Laboratory Results 07/16/19 17:50: WBC 12.0 H, RBC 3.93 L, Hgb 11.3 L, Hct 34.7 L, MCV 88.3, MCH 28.8, MCHC 32.6, RDW Std Deviation 41.4, RDW Coeff of Giselle 12.9, Plt Count 222, MPV 9.6, Immature Gran % (Auto) 0.400, Neut % (Auto) 74.5 H, Lymph % (Auto) 18.4 L, [place] % (Auto) 5.8, Eos % (Auto) 0.7, Baso % (Auto) 0.2, Absolute Neuts (auto) 8.9 H, Absolute Lymphs (auto) 2.21, Nucleated RBC % 0 07/16/19 17:50: Blood Type A POSITIVE, Antibody Screen NEGATIVE 07/17/19 06:20: WBC 14.4 H, RBC 3.70 L, Hgb 10.8 L, Hct 32.5 L, MCV 87.8, MCH 29.2, MCHC 33.2, RDW Std Deviation 40.9, RDW Coeff of Giselle 12.8, Plt Count 213, MPV 9.5 Current Medications Acetaminophen (Tylenol) 1,000 mg PO Q8H PRN PRN PRN Reason: Pain Score 1-3/10 Last Admin: 07/17/19 03:56 Dose: 1,000 mg Documented by: Bisacodyl (Dulcolax) 10 mg RECTAL UD PRN PRN Reason: If no BM Citalopram Hydrobromide (Celexa) 10 mg PO DAILY@2200 [address] Last Admin: 07/16/19 22:44 Dose: 10 mg Documented by: Dibucaine (Dibucaine) 1 applic TOPICAL TID PRN PRN; Protocol PRN Reason: Discomfort Hydrocortisone (Hytone) 1 applic TOPICAL TID PRN PRN; Protocol PRN Reason: Discomfort Ibuprofen (Motrin) 600 mg PO Q6H PRN PRN PRN Reason: Pain Score 1-3/10 Last Admin: 07/17/19 07:53 Dose: 600 mg Documented by: Methylergonovine Maleate (Methergine) 0.2 mg IM X1 PRN PRN Reason: Excess bleeding/uterine atony Ondansetron HCl (Zofran) 4 mg IV Q4H PRN PRN PRN Reason: Nausea Multivit/Folic Acid/Iron (Prenatabs Fa) 1 tablet PO DAILY@1200 [address] Last Admin: 07/17/19 07:54 Dose: 1 tablet Documented by: Senna/Docusate Sodium (Senokot-S, Dipti-Colace) 1 - 2 tablet PO DAILY PRN PRN PRN Reason: Constipation Simethicone (Mylicon) 80 mg PO PCHS PRN PRN Reason: Indigestion/Stomach pain Sodium Chloride () 5 - 15 ml IV UD PRN PRN Reason: SALINE FLUSH Medical Necessity - Tobacco Use Smoking Status: Never smoker Assessment/Plan All Active Problems (Last Reviewed 04/01/19 @ 11:04 by Asmita Camejo) 33 weeks gestation of (Acute) Multiparous (Acute) Abdominal pain (Acute) 35 weeks gestation of (Acute) Vaginal discharge during (Acute) Active labor at term (Acute) History of recurrent miscarriages (Acute) History of depression (Acute) Anxiety during (Acute) At risk for self harm (Acute) Vaginal delivery (Acute) Pharyngitis (Acute) URI (upper respiratory infection) (Acute) Sinusitis (Acute) Otitis media (Acute) Gastroenteritis (Acute) Is day 1 from a spontaneous vaginal delivery. She is doing well. Breast-feeding. Routine care. Anticipate discharge tomorrow.
--- NOTE | 2019-07-17 16:06 | CASEMGMT ---
Social Work Labor and Delivery Consult received and noted for maternal history of depression. Chart reviewed. Plan to see patient/mother of baby on 07.18.2019 for social work consult. -FIONA Chapin, SEARCH MANAGER
[2019-07-17] MEDS: Citalopram 10 MG Tablet PO (21:10)
[2019-07-18 05:21] VITALS: BP 130/84; PULSE 73; RESP 18; TEMP 36.4; O2SAT 100
[2019-07-18] MEDS: Ibuprofen 600 MG Tablet PO ×2 (07:56→14:21)
--- NOTE | 2019-07-18 07:56 | DCINST_ITS ---
Discharge Diet: No Restrictions Discharge Activity: May Drive, May Shower May resume sexual activity in: 6 weeks Additional Instructions: If you experience any of the following, contact your healthcare provider. * Bleeding that soaks a pad every hour for 2 hours * Fever 100.4 or higher * Unrelieved incision or abdominal pain * Swelling, redness, discharge or bleeding from your incision or episiotomy site * Your incision begins to separate * Problems urinating (including inability to urinate or burning while urinating). * Visual changes * Severe headache * Flu-like symptoms * Pain or redness in one of both of your breasts * Pain, warmth, tenderness or swelling in your legs, especially the calf area * Frequent nausea and vomiting * Symptoms of depression or anxiety If you experience any of the following, call 911 or go to the nearest Emergency Room. * Chest pain * Problems breathing * Seizure activity * Partial or complete paralysis of a body part, slurred speech, weakness or drooping of the face, or a sudden inability to walk or hold your balance Allergies/Adverse Reactions: Allergies prednisone Allergy (Verified 07/16/19 14:51) Swelling Seasonal Allergy (Mild, Uncoded 04/01/19 11:02) unknown Medications to take at Discharge Multivitamin Tablet 1 tab PO DAILY 12/16/18 Cholecalciferol (Vitamin D3) [Vitamin D3] 2,000 unit PO DAILY 03/06/19 Citalopram Hydrobromide [Citalopram HBr] 10 mg PO DAILY 06/07/19 Acetaminophen [Tylenol] 1,000 mg PO Q8H PRN PRN tablet 07/18/19 Ibuprofen [Motrin] 600 mg PO Q6H PRN PRN tablet 07/18/19 Primary Care Physician: Care Physician,No Primary [Primary Care Provider] - Test Results: Test results from this visit will be discussed in further detail at your follow- up appointment, if applicable.
--- NOTE | 2019-07-18 07:56 | PCM.DCVAG ---
Discharge Diet: No Restrictions Discharge Activity: May Drive, May Shower May resume sexual activity in: 6 weeks Additional Instructions: If you experience any of the following, contact your healthcare provider. Bleeding that soaks a pad every hour for 2 hours Fever 100.4 or higher Unrelieved incision or abdominal pain Swelling, redness, discharge or bleeding from your incision or episiotomy site Your incision begins to separate Problems urinating (including inability to urinate or burning while urinating). Visual changes Severe headache Flu-like symptoms Pain or redness in one of both of your breasts Pain, warmth, tenderness or swelling in your legs, especially the calf area Frequent nausea and vomiting Symptoms of depression or anxiety If you experience any of the following, call 911 or go to the nearest Emergency Room. Chest pain Problems breathing Seizure activity Partial or complete paralysis of a body part, slurred speech, weakness or drooping of the face, or a sudden inability to walk or hold your balance Allergies/Adverse Reactions: Allergies prednisone Allergy (Verified 07/16/19 14:51) Swelling Seasonal Allergy (Mild, Uncoded 04/01/19 11:02) unknown Medications to take at Discharge Multivitamin Tablet 1 tab PO DAILY 12/16/18 Cholecalciferol (Vitamin D3) [Vitamin D3] 2,000 unit PO DAILY 03/06/19 Citalopram Hydrobromide [Citalopram HBr] 10 mg PO DAILY 06/07/19 Acetaminophen [Tylenol] 1,000 mg PO Q8H PRN PRN tablet 07/18/19 Ibuprofen [Motrin] 600 mg PO Q6H PRN PRN tablet 07/18/19 Primary Care Physician: Care Physician,No Primary [Primary Care Provider] - Test Results: Test results from this visit will be discussed in further detail at your follow-up appointment, if applicable.
--- NOTE | 2019-07-18 07:56 | PCM.PN.OB ---
Patient Problems: Active and Suspected Problems (Last Reviewed 04/01/19 @ 11:04 by Asmita Camejo) Active labor at term (Acute) History of recurrent miscarriages (Acute) History of depression (Acute) Anxiety during (Acute) At risk for self harm (Acute) Vaginal delivery (Acute) Subjective: No complaints - Physical Exam Vitals/I&O's: Vital Signs Temp Pulse Resp BP Pulse Ox 97.6 F L 73 18 130/84 H 100 07/18/19 05:21 07/18/19 05:21 07/18/19 05:21 07/18/19 05:21 07/18/19 05:21 Oxygen Delivery Method Room Air Weight: 225 lb Body Mass Index (BMI) 37.4 Intake and Output for Last 24 Hours 07/16/19 07/17/19 07/18/19 23:59 23:59 23:59 Intake Total Output Total 400 / 400 Balance -400 / -400 General: Alert, Oriented x3 Abdomen: Soft, Non Tender, Non-Distended - ff mid & below umb Extremities: No Calf Tenderness Current Medications Acetaminophen (Tylenol) 1,000 mg PO Q8H PRN PRN PRN Reason: Pain Score 1-310 Last Admin: 07/17/19 03:56 Dose: 1,000 mg Documented by: Bisacodyl (Dulcolax) 10 mg RECTAL UD PRN PRN Reason: If no BM Citalopram Hydrobromide (Celexa) 10 mg PO DAILY@2200 NE Last Admin: 07/17/19 21:10 Dose: 10 mg Documented by: Dibucaine (Dibucaine) 1 applic TOPICAL TID PRN PRN; Protocol PRN Reason: Discomfort Hydrocortisone (Hytone) 1 applic TOPICAL TID PRN PRN; Protocol PRN Reason: Discomfort Ibuprofen (Motrin) 600 mg PO Q6H PRN PRN PRN Reason: Pain Score 1-3/10 Last Admin: 07/17/19 21:10 Dose: 600 mg Documented by: Methylergonovine Maleate (Methergine) 0.2 mg IM X1 PRN PRN Reason: Excess bleeding/uterine atony Ondansetron HCl (Zofran) 4 mg IV Q4H PRN PRN PRN Reason: Nausea Multivit/Folic Acid/Iron (Prenatabs Fa) 1 tablet PO DAILY@1200 NE Last Admin: 07/17/19 07:54 Dose: 1 tablet Documented by: Senna/Docusate Sodium (Senokot-S, Dipti-Colace) 1 - 2 tablet PO DAILY PRN PRN PRN Reason: Constipation Simethicone (Mylicon) 80 mg PO PCHS PRN PRN Reason: Indigestion/Stomach pain Sodium Chloride () 5 - 15 ml IV UD PRN PRN Reason: SALINE FLUSH Medical Necessity - Tobacco Use Smoking Status: Never smoker Assessment/Plan All Active Problems (Last Reviewed 04/01/19 @ 11:04 by Asmita Camejo) 33 weeks gestation of (Acute) Multiparous (Acute) Abdominal pain (Acute) 35 weeks gestation of (Acute) Vaginal discharge during (Acute) Active labor at term (Acute) History of recurrent miscarriages (Acute) History of depression (Acute) Anxiety during (Acute) At risk for self harm (Acute) Vaginal delivery (Acute) Pharyngitis (Acute) URI (upper respiratory infection) (Acute) Sinusitis (Acute) Otitis media (Acute) Gastroenteritis (Acute) PPD#2 D/c home
[2019-07-18 10:10] VITALS: BP 118/84; PULSE 69; RESP 20; TEMP 36.6; O2SAT 100
[2019-07-18 14:15] VITALS: BP 116/70; PULSE 85; TEMP 36.5; O2SAT 98
[2019-07-18] MEDS: Prenatal Vits Tablet 1 TABLET PO (14:21)
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
--- NOTE | 2019-07-18 16:40 | CASEMGMT ---
Social Work - PHQ9 follow up Labor and Delivery See this underwriter mortgage loan's previous note earlier this date for details of assesssment and more detailed notation about PHQ9. This underwriter mortgage loan completed the depression screen with mother of baby and assessed for suicide risk when completing initial social work assessment. MOB had no active thoughts, plans, or intent to kill herself. MOB was future oriented in conversation with this underwriter mortgage loan, as well as has outpatient providers for counseling and medication management. No other services requested or indicated. See prior social work noted dated 07.18.2019 for further details. -FIONA Chapin, DIESEL RETROFIT INSTALLER
== END 2019-07-18 14:30 | disposition home or self-care (01) | DRG 560 ==
LOC: WPOUT 17:16 → WP 17:16
PROVIDERS: Admitting Provider Advanced Practice Midwife; Visit Provider Advanced Practice Midwife
DX: O99.344 Other mental disorders complicating childbirth (principal); F41.9 Anxiety disorder, unspecified; O26.23 Pregnancy care for patient with recurrent pregnancy loss, third trimester; Z3A.39 39 weeks gestation of pregnancy; Z37.0 Single live birth
CPT/HCPCS: 59025; 59050; 85025; 85027; 86850; 86900; 86901; 99218; J7120; G0378; J2405

== ENCOUNTER 2019-09-21 06:58 | Day surgery (SDC) | payer MEDICAID, SELFPAY ==
[2019-07-16 14:57] VITALS: BMI 37.4
--- NOTE | 2019-09-20 15:45 | PCM.HP.BLA ---
History and Physical Date of Admission: 09/21/19 Mary Turner Physician Specialty: [facility] H&P Signed Encounter Date: 09/20/2019 Expand All Collapse All Hide copied text Zachary for details Falguni Westfall is a 32 year old female who presents for pre op visit. Pt was rescheduled due to covid 19. Patient is scheduled for hysteroscopy, D&C, polypectomy due to abnormal uterine bleeding and endometrial polyp appreciated on pelvic ultrasound. Patient denies any chest pain, shortness of breath, dizziness. Patient would like to proceed with surgery. ? PAST MEDICAL HISTORY PAST MEDICAL HISTORY Diagnosis Date ? Asthma ? ? Fibroids ? ? Sarcoidosis ? PAST SURGICAL HISTORY PAST SURGICAL HISTORY Procedure Laterality Date ? NONE ? ? FAMILY HISTORY FAMILY HISTORY Problem Relation Age of Onset ? other (ms) Mother ? ? other (uterine fibroids) Mother ? ? Heart disease Father ? ? other (PCOS) Sister ? ? other (lukemia) Maternal Grandfather ? SOCIAL HISTORY Social History ? Tobacco Use ? Smoking status: Never Smoker ? Smokeless tobacco: Never Used Substance Use Topics ? Alcohol use: Yes ? ? Comment: social ? Drug use: No CURRENT MEDICATIONS Current Outpatient Medications Medication Sig ? cholecalciferol, vitamin D3, (VITAMIN D3) 4,000 unit cap Take by mouth. ? Omeprazole 40 mg capsule Take 40 mg by mouth once daily. ? No current facility-administered medications for this visit. Allergies As of Date: 09/20/2019 Allergen Noted Reaction BEE STING 05/21/2017 Hives, Swelling, and Shortness of Breath ? Fully Assessed 09/20/2019 ? REVIEW OF SYSTEMS Abdomen: no pain .. Expanded ROS: GENERAL: Negative for fever Allergies and current medication updated:Yes ? EXAM: BP 124/78 Ht 5' 3 (1.60m) Wt 158 lb (71.7kg) LMP 08/26/2019 BMI 28.00 kg/(m^2). GENERAL: pleasant, female in no apparent distress HEENT: Normocephalic and atraumatic NECK: full range of motion DERMATOLOGY: Normal, without lesions, non-icteric and non-hirsute CARDIAC: Regular rate and rhythm CHEST: Clear to auscultation Normal inspiratory effort NEURO: alert and oriented x3,exam grossly non-focal ? ASSESSMENT AND PLAN: Encounter Diagnosis ? ? ICD-10-CM ? 1. Abnormal uterine bleeding (AUB) N93.9 ? 2. Endometrial polyp N84.0 ? 3. Pre-op exam Z01.818 ? 4. Pt has been counseled on risks/benefits and alternatives of surgery including but not limited to anesthesia, bleeding, infection,perforation of uterus with subsequent injury to pelvic structures including bowel, bladder, ureters and vessels. Pt wishes to proceed with surgery at this time. COVID 19 testing preop is pending at [facility] ? The surgeon/proceduralist and patient have discussed in detail the risk of exposure to and/or potential harm posed by the COVID-19 virus with having a surgery/procedure at this time versus the risk of? delaying the surgery/procedure. It is not possible to know either the risk of delaying the surgery or procedure or chance of getting an infection with perfect accuracy, but a joint decision was made between the patient and the surgeon/proceduralist ?to proceed at this time with the scheduled surgery/procedure as indicated on the consent form. ? ? Mary Bryan MD ? Office Visit on 09/20/2019 Essential Procedure Criteria Procedure Essential: No Criteria Note: On 07/25/2019 the [place] Department of Health ([facility]) Public Order signed by [facility] Director Maris Chavez M.D., regarding the Management of Non-Essential Surgeries and Procedures for the purpose of preserving Personal Protective Equipment (PPE) and critical hospital capacity and resources within [place] went into effect as of 07/26/2019 at 5:00PM. According to the [facility] Public Order: This action will remain in full force and effect until the State of Emergency declared by the Governor no longer exists or the Director of the [facility] rescinds or modifies this Order.. This [facility] order stated all non-essential or elective surgeries and procedures that utilize PPE should be delayed unless there is undue risk to the current or future health of a patient. After reviewing the aforementioned [facility] Public Order and the patients clinical case, I have determined that the scheduled procedure meets the criteria to go forward.
[2019-09-21] VITALS (9 sets, daily range): BP systolic 101–123; BP diastolic 66–93; PULSE 16–78; RESP 16; TEMP 36.1–36.3; O2SAT 98–100; BMI 36.7
--- NOTE | 2019-09-21 | FALS_PTH ---
PATIENT: TASHA VASQUEZ [place] [facility] [id number] AGE/SX: 29/F ROOM: RE09/21/[address]: Dr. Mary Bryan, MDDOB: 1990 BED: DIS: 09/21/2019 SPEC #: [id number] RECD: 09/21/19 12:37 STATUS: CHANTE RERadha #: [id number] ALONSO: 09/21/19 00:[address]: Mary Bryan DEPT: SURGICAL PATHOLOGY RECD BY: Celestino Sesay ENTERED: 09/21/19 12:37 SP TYPE: FALL TUBES OTHR DR: No Primary Care Phys Tissues: Fallopian tube Procedures: Surgery Specimen Level II HEADER OPERATION: Laparoscopic salpingectomy PRE-OP DIAGNOSIS: Sterilization TISSUE SUBMITTED: Bilateral fallopian tubes MICROSCOPIC DIAGNOSIS Right and left fallopian tubes, bilateral salpingectomies: Two complete cross-sections of fallopian tubes with no pathologic change. AM:juan 09/22/19 MICROSCOPIC DESCRIPTION Slides are reviewed. GROSS DESCRIPTION Received in fixative is one container labeled with the patient's name and designated bilateral fallopian tubes. The specimen consists of bilateral fallopian tubes including fimbrial ends measuring 6.5 cm in length and 0.5 cm in diameter and 6 cm in length and 0.6 cm in diameter. The fallopian tubes are not identified as right or left. Sections reveal unremarkable cut surfaces. Box Turner sections are submitted in two cassettes with each cassette containing one fallopian tube. / EYAD:juan 09/21/19 TC:4 CPT: 86848 x2
[2019-09-21 07:25] LABS: Internal QC Validated? YES +Cl - CLEAR BKGD; Pregnancy, Urine Negative Negative
[2019-09-21 07:27] LABS: Hematocrit 41.7 % (37-47); Hemoglobin 13.2 g/dL (12.0-15.0); Mean Corp Hgb Conc 31.7 g/dL (32-36); Mean Corpuscular Hgb 28.3 pg (27.0-32.0); Mean Corpuscular Volume 89.5 fL (81-99); Platelet Count 274 K/mm3 (150-450); RBC Distribution Width CV 12.6 % (11.6-14.6); RBC Distribution Width SD 41.1 fl (35.1-43.9); Red Blood Count 4.66 M/mm3 (4.2-5.4); White Blood Count 4.8 K/mm3 (4.4-11.0)
[2019-09-21] MEDS: Lactated Ringers 1,000 ML 100 ML IV (07:32)
[2019-09-21 08:35] LABS: Prothrombin Time (Protime)PT. 13.1 SECONDS (11.7-14.9)
[2019-09-21 08:36] LABS: Partial Thromboplast Time 28.1 Seconds (24.1-36.2)
--- NOTE | 2019-09-21 09:00 | DCINST_ITS ---
Discharge Diet: No Restrictions, - - Increase fluid intake for 48 hours. Discharge Activity: Return to Normal Activity, May Drive - when you are no longer taking narcotic pain medications., May Shower, May Take a Tub Bath - in 7 days., - - Ambulate often the next week after surgery. May resume sexual activity in: 2 weeks Lifting Restrictions: 25 Additional Activity Instructions:: Nothing in the vagina for the next 5 days. Call your doctor if your incision/area has: Continuous Slow Oozing, Sudden Increased Bleeding, Increased Pain/ Swelling, Increased Redness, Foul Smelling Discharge, Swelling at the incision site Call your doctor if you observe: Fever of 101 or Higher Cleanse incision/area with: - - do not pick off skin glue. may shower and let soap and water run over incision sites. dab dry Allergies/Adverse Reactions: Allergies prednisone Allergy (Verified 09/21/19 07:21) Swelling Seasonal Allergy (Mild, Uncoded 09/21/19 07:21) unknown Medications to take at Discharge Multivitamin Tablet 1 tab PO DAILY 12/16/18 Citalopram Hydrobromide [Citalopram HBr] 10 mg PO DAILY 06/07/19 Acetaminophen [Tylenol] 1,000 mg PO Q8H PRN PRN tab 07/18/19 Ibuprofen [Motrin] 600 mg PO Q6H PRN PRN tab 07/18/19 Primary Care Physician: Care Physician,No Primary [Primary Care Provider] - Test Results: Test results from this visit will be discussed in further detail at your follow- up appointment, if applicable. Please Follow Up With: Mary Bryan MD When: 2 weeks
[2019-09-21] MEDS: Bupivacaine Mpf 0.5% 30 ML VIAL (09:03)
--- NOTE | 2019-09-21 09:04 | PCM.OPRPT ---
Report of Operation Date of Procedure: 09/21/19 Pre-Operative Diagnosis: desires sterilization Post-Operative Diagnosis: same Surgery/Procedure Performed:: laparoscopic bilateral salpingectomy Description of Surgical Findings:: normal tubes and ovaries bilaterally packerhead machine operator: Gregory Giles Type of Anesthesia:: General Special Medications: 0.5% marcaine Specimen's removed: bilateral fallopian tubes Drains: none Estimated Blood Loss (mL): <5cc Fluids Replaced: 900 Description of Procedure: After informed consent was obtained patient was taken to the operating room she was placed in supine position she was given anesthesia. She was then placed in the [facility] and she was prepped and draped in normal sterile fashion. Bladder was drained prior to the start of procedure. At this time attention was turned to the vaginal portion where weighted speculum placed at posterior fornix vagina single-tooth tenaculum was used to gently grasp the internal the cervix. uterus was gently sounded to approximately cm. Uterine manipulator was placed without difficulty. Legs then placed in parallel with the abdomen the tenaculum and the weighted speculum were removed. 2 towel clamps were placed at level of umbilicus. Marcaine was injected infraumbilical and a small incision was made. The 5 mm trocar was placed under direct visualization. CO2 gas was used to insufflate the intra-abdominal cavity. Upon inspection no gross abnormalities appreciated- the uterus tubes and ovaries appeared to be normal. At this time then the LLQ and RLQ ports were placed First Marcaine was injected and small incision was made a knife and the 5 mm trocars were placed. At this time then tubes were traced back to the fimbriated ends. Ligasure was used to coagulate and ligate along mesosalpinx bilaterally until tubes removed completely. Good hemostasis was appreciated. At this time procedure was deemed complete successful. The gas was desufflated on from the intra-abdominal cavity. The trochars were removed. Skin was closed using 4-0 Monocryl in a subcutaneous fashion. Dermabond glue was placed. Instrument lap and needle counts were correct ?2. The uterine manipulator was removed. Vaginal sweep was performed it was negative. There were no complications anticipated normal postoperative course for this patient. Grafts/Implants Used: none - Complications none - Admit VTE Documentation VTE Present on Admission: Yes VTE Mechan Device Prophylaxis: SCD's VTE Pharm Prophylaxis ordered?: No
[2019-09-21] MEDS: HYDROcodone Bitartrate/Apap 5/325 Tablet PO (10:03)
== END 2019-09-21 10:44 | disposition home or self-care (01) ==
LOC: SDC 06:59 → AC 07:00
PROVIDERS: Anesthesiology; Referring Provider Obstetrics & Gynecology; Visit Provider Obstetrics & Gynecology
PROC: (CPT 58661; principal; 2019-09-21 08:15)
DX: Z30.2 Encounter for sterilization (principal); J45.909 Unspecified asthma, uncomplicated; Z11.59 Encounter for screening for other viral diseases
CPT/HCPCS: 00840; 58661; 36415; 81025; 85027; 85610; 85730; 87635; 88302; G2023; J7120; J2405; U0002

== ENCOUNTER → 2020-04-12 17:41 | Outpatient (CLI) | payer OTHER, MEDICAID, SELFPAY ==
[2020-04-12 15:30] VITALS: BMI 37.3
== END ==
PROVIDERS: Visit Provider Physician Assistant
DX: Z20.828 Contact with and (suspected) exposure to other viral communicable diseases (principal)
CPT/HCPCS: 87635; U0003

== ENCOUNTER 2020-04-28 11:11 | Emergency (ER) | payer OTHER, MEDICAID, SELFPAY ==
[2020-04-12 15:30] VITALS: BMI 37.3
[2020-04-28 11:11] VITALS: BP 156/82; PULSE 104; RESP 16; TEMP 36.7; O2SAT 100; BMI 37.6
[2020-04-28] MEDS: Ondansetron 4 MG/2 ML Vial IV (11:43)
[2020-04-28 11:54] LABS: Bacteria 0 SEEN /hpf (None Seen); Mucous, Urine 0 SEEN /hpf (<or=2+); Red Blood Cells-Urine 0 SEEN /hpf (0-5); White Blood Cells 0 SEEN /hpf (0-5)
[2020-04-28 11:55] LABS: Absolute Lymphocyte Count 1.66 X10^3/uL (0.83-4.51); Absolute Neutrophil Count 2.7 X10^3/uL (2.0-7.7); Basophil# 0.02 X10^3/uL; Basophil% 0.4 % (0-1); Eosinophil# 0.05 X10^3/uL; Hematocrit 39.2 % (37-47); Lymphocyte # 1.66 X10^3/ul (4.0); Lymphocyte % 34.7 % (19-41); Mean Corp Hgb Conc 33.2 g/dL (32-36); Mean Corpuscular Hgb 28.8 pg (27.0-32.0); Mean Corpuscular Volume 86.7 fL (81-99); Mean Platelet Vol. 10.4 fl (6.2-12.0); Monocyte# 0.35 X10^3/uL; Monocyte% 7.3 % (0-10); NRBC Flagged by Analyzer 0 % (0-5); Neutrophil # 2.69 X10^3/uL (2.7-7.7); Neutrophil % 56.4 % (47-70); Platelet Count 287 K/mm3 (150-450); RBC Distribution Width CV 12.7 % (11.6-14.6); Red Blood Count 4.52 M/mm3 (4.2-5.4); White Blood Count 4.8 K/mm3 (4.4-11.0)
[2020-04-28 11:59] LABS: Internal QC Validated? YES +Cl - CLEAR BKGD; Pregnancy, Urine Negative Negative
[2020-04-28 12:10] LABS: Color, Urine Yellow (Yellow); Glucose, Dipstick Normal (Normal); Ketone-Dipstick Negative (Negative); Leukocyte Esterase-Dipstick Negative /ul (Negative); Nitrite-Dipstick Negative (Negative); Occult Blood-Urine Negative /ul (Negative); Protein-Dipstick Negative (Negative); Urine Bilirubin Dipstick Negative (Negative); Urine Clarity Clear (Clear); Urine Urobilinogen Normal (Normal)
[2020-04-28 12:12] LABS: Squamous Epithelial Cells - UA 0-5 SEEN /hpf (5-10)
[2020-04-28 12:15] LABS: AST(SGOT) 16 U/L (15-37); Alanine Aminotransfer ALT/SGPT 33 U/L (13-56); Albumin, Serum 3.9 g/dL (3.2-5.0); Alkaline Phosphatase 74 U/L (45-117); Anion Gap 7 (5-15); BUN 8 mg/dL (7-18); BUN/Creat Ratio 12.5 RATIO (10-20); Calcium,Total 8.2 mg/dL (8.5-10.1); Chloride 109 mmol/L (98-107); Creatinine, Serum 0.64 mg/dL (0.55-1.02); EST Glomerular Filtration Rate 115 mL/min (>60); Est Glom Filt Rate - Afr Amer 139 mL/min (>60); Estimated Creatinine Clearance 114.61 ml/min; Glucose 89 mg/dL (74-106); Lipase 102 U/L (73-393); Potassium 3.4 mmol/L (3.5-5.1); Protein, Total 7.9 g/dL (6.4-8.2); Sodium Level 140 mmol/L (136-145)
--- NOTE | 2020-04-28 12:30 | ED.VIS.GEN ---
History of Present Illness Chief Complaint: Abd Pain Informant: Patient Narrative: 29-year-old female presenting for the evaluation of abdominal pain. Patient states that yesterday she had a pain in her left calf. She used heat and compression stockings and today was gone. She did not have any swelling. She states that she had Covid diagnosed April 12. She states that she is very afraid of blood clots. She states she woke up this morning and had this central abdominal pain. She had diarrhea and vomiting. No fevers. Nothing seems to make the pain better or worse. She states she is extremely anxious because she has anxiety Past Medical History - Allergies and Home Meds Allergies/Adverse Reactions: Allergies prednisone Allergy (Verified 04/28/20 11:13) Swelling Seasonal Allergy (Mild, Uncoded 04/28/20 11:13) unknown Primary Care Physician: Care Physician,No Primary [Primary Care Provider] - Past Medical History: - - Anxiety Surgical History: - - Tubal ligation Lives: Spouse/ Significant Other, With Family Smoking Status: Never smoker Drugs: None Review of Systems General: Denies: Chills, Fever, Sweats Eyes: Denies: Visual changes - bilaterally, Diplopia ENT: Denies: Rhinorrhea, Sore throat Cardiovascular: Reports: Palpitations. Denies: Chest pain Respiratory: Denies: Dyspnea, Cough, Dyspnea on exertion Gastrointestinal: Reports: Abdominal pain, Nausea, Vomiting, Diarrhea. Denies: Melena, Hematochezia Genitourinary: Denies: Dysuria, Hematuria, Frequency Musculoskeletal: Reports: Extremity Pain. Denies: Back pain Skin: Denies: Rash, Wounds Neurological: Denies: Headache, Weakness, Numbness Psych: Reports: Anxiety. Denies: Suicidal thoughts, Suicidal ideations Physical Exam Vital Signs/Narrative: Vital Signs Temp Pulse Resp BP Pulse Ox 04/28/20 11:11 98.1 F 104 H 16 156/82 H 100 Inital Vital Signs reviewed: Yes General: Well nourished, Well developed, No Acute Distress Head: Normocephalic, Atraumatic Eyes: Perrl, EOMI ENT: Moist mucous membranes, No rhinorrhea Neck: Supple, Nontender Cardiovascular: Regular rate, Regular rhythm, No murmurs Respiratory: No distress, CTA bilaterally, Chest nontender Abdomen: Soft, Nontender, Nondistended, Normal bowel sounds Back: Nontender, Normal Inspection Extremities: Nontender, No edema Skin: Normal color, No rash Neurological: Alert, Oriented x3, Cranial nerves II-XII grossly intact, Normal Strength, Normal Sensation Psychological: Normal affect, Normal Mood Diagnostic/Tx/Re-eval Laboratory Last Values WBC 4.8 K/mm3 (4.4-11.0) 04/28/20 11:40 RBC 4.52 M/mm3 (4.2-5.4) 04/28/20 11:40 Hgb 13.0 g/dL (12.0-15.0) 04/28/20 11:40 Hct 39.2 % (37-47) 04/28/20 11:40 MCV 86.7 fL (81-99) 04/28/20 11:40 MCH 28.8 pg (27.0-32.0) 04/28/20 11:40 MCHC 33.2 g/dL (32-36) 04/28/20 11:40 RDW Std Deviation 40.0 fl (35.1-43.9) 04/28/20 11:40 RDW Coeff of Giselle 12.7 % (11.6-14.6) 04/28/20 11:40 Plt Count 287 K/mm3 (150-450) 04/28/20 11:40 MPV 10.4 fl (6.2-12.0) 04/28/20 11:40 Immature Gran % (Auto) 0.200 % (0.0-0.9) 04/28/20 11:40 Neut % (Auto) 56.4 % (47-70) 04/28/20 11:40 Lymph % (Auto) 34.7 % (19-41) 04/28/20 11:40 [place] % (Auto) 7.3 % (0-10) 04/28/20 11:40 Eos % (Auto) 1.0 % (0-5) 04/28/20 11:40 Baso % (Auto) 0.4 % (0-1) 04/28/20 11:40 Absolute Neuts (auto) 2.7 X10^3/uL (2.0-7.7) 04/28/20 11:40 Absolute Lymphs (auto) 1.66 X10^3/uL (0.83-4.51) 04/28/20 11:40 Nucleated RBC % 0 % (0-5) 04/28/20 11:40 Sodium 140 mmol/L (136-145) 04/28/20 11:40 Potassium 3.4 mmol/L (3.5-5.1) L 04/28/20 11:40 Chloride 109 mmol/L (98-107) H 04/28/20 11:40 Carbon Dioxide 24.0 mmol/L (21.0-32.0) 04/28/20 11:40 Anion Gap 7 (5-15) 04/28/20 11:40 BUN 8 mg/dL (7-18) 04/28/20 11:40 Creatinine 0.64 mg/dL (0.55-1.02) 04/28/20 11:40 Estim Creat Clear Calc 114.61 ml/min 04/28/20 11:40 Est GFR (MDRD) Af Amer 139 mL/min (>60) 04/28/20 11:40 Est GFR (MDRD) Non-Af 115 mL/min (>60) 04/28/20 11:40 BUN/Creatinine Ratio 12.5 RATIO (10-20) 04/28/20 11:40 Glucose 89 mg/dL (74-106) 04/28/20 11:40 Calcium 8.2 mg/dL (8.5-10.1) L 04/28/20 11:40 Total Bilirubin 0.40 mg/dL (0.20-1.00) 04/28/20 11:40 AST 16 U/L (15-37) 04/28/20 11:40 ALT 33 U/L (13-56) 04/28/20 11:40 Alkaline Phosphatase 74 U/L (45-117) 04/28/20 11:40 Total Protein 7.9 g/dL (6.4-8.2) 04/28/20 11:40 Albumin 3.9 g/dL (3.2-5.0) 04/28/20 11:40 Globulin 4.0 g/dL (2.2-4.2) 04/28/20 11:40 Albumin/Globulin Ratio 1.0 RATIO (0.9-2.4) 04/28/20 11:40 Lipase 102 U/L (73-393) 04/28/20 11:40 Urine Color Yellow (Yellow) 04/28/20 11:40 Urine Clarity Clear (Clear) 04/28/20 11:40 Urine pH 8.0 (5.0 - 8.0) 04/28/20 11:40 Ur Specific [place] 1.010 (1.002-1.030) 04/28/20 11:40 Urine Protein Negative mg/dl (Negative) 04/28/20 11:40 Urine Glucose (UA) Normal mg/dl (Normal) 04/28/20 11:40 Urine Ketones Negative mg/dl (Negative) 04/28/20 11:40 Urine Occult Blood Negative /ul (Negative) 04/28/20 11:40 Urine Nitrite Negative (Negative) 04/28/20 11:40 Urine Bilirubin Negative mg/dL (Negative) 04/28/20 11:40 Urine Urobilinogen Normal mg/dl (Normal) 04/28/20 11:40 Ur Leukocyte Esterase Negative /ul (Negative) 04/28/20 11:40 Urine RBC 0 SEEN /hpf (0-5) 04/28/20 11:40 Urine WBC 0 SEEN /hpf (0-5) 04/28/20 11:40 Ur Squamous Epith Cells 0-5 SEEN /hpf (5-10) 04/28/20 11:40 Urine Bacteria 0 SEEN /hpf (None Seen) 04/28/20 11:40 Urine Mucus 0 SEEN /hpf (<or=2+) 04/28/20 11:40 Urine Test Negative Negative 04/28/20 11:40 - Medical Decision Making Basic blood work shows a normal white blood cell count. Urinalysis is normal. test is negative. LFTs and lipase normal. Given that the patient had vomiting and some diarrhea suspect she has more of a viral gastroenteritis. I can recommend some Zofran and rest. Return if worsening or concerns ED Disposition - Plan for ED Patient: Disposition: Home or Assisted Living Diagnosis: Abdominal pain, Gastroenteritis Instructions: ED Gastroenteritis, Viral (Adult) Prescriptions: Ondansetron [Zofran Odt] 4 mg PO Q6H PRN PRN #15 tab PRN Reason: Nausea Prescription Printed
[2020-04-28 12:48] VITALS: BP 121/68; PULSE 74; RESP 15
== END 2020-04-28 13:29 | disposition home or self-care (01) ==
PROVIDERS: Emergency Provider Emergency Medicine
DX: R10.9 Unspecified abdominal pain (principal); K52.9 Noninfective gastroenteritis and colitis, unspecified
CPT/HCPCS: 80053; 81001; 81025; 83690; 85025; 96374; 99283; A4216; J2405

== ENCOUNTER 2020-10-24 05:03 | Emergency (ER) | payer BC, MEDICAID, SELFPAY ==
[2020-10-24 05:05] VITALS: BP 150/102; PULSE 122; RESP 18; TEMP 36.6; O2SAT 100; BMI 37.7
[2020-10-24 05:40] VITALS: BP 153/93; PULSE 100; RESP 18; TEMP 36.5; O2SAT 100
--- NOTE | 2020-10-24 05:40 | RAD_ITS ---
STUDY: X-RAY CHEST REASON FOR EXAM: Female, 30 years old. cough TECHNIQUE: Single AP portable view of the chest. COMPARISON: August 29, 2018. FINDINGS: No focal infiltrates or effusions. No pneumothorax. Normal size heart. Normal mediastinum and melinda. Normal visualized pulmonary arteries. Normal visualized aortic arch and descending thoracic aorta. Normal visualized thoracic spine. Normal visualized ribs, clavicles, and shoulders. There is no demonstrated abnormality of the visualized soft tissue structures of the upper abdomen. RAD/Chest 1 View (Portable) IMPRESSION: Normal x-ray examination of the chest. Electronically Signed: Juan Diego Naylor MD at 6:51 EDT , Service support ,
--- NOTE | 2020-10-24 05:40 | EKG12_ITS ---
Test Reason : COLD S/X Blood Pressure : / mmHG Vent. Rate : 106 BPM Atrial Rate : 106 BPM P-R Int : 138 ms QRS Dur : 088 ms QT Int : 348 ms P-R-T Axes : 035 018 001 degrees QTc Int : 462 ms Sinus tachycardia Otherwise normal ECG Confirmed by ERLIN ALFORD, JD ([id number]), magazine editor RODRIGUEZ JIMENEZ ([id number]) on 10/28/2020 10:59:06 A M Referred By: [facility]SA Confirmed By:TEN KERN MD
--- NOTE | 2020-10-24 05:43 | EX.ED.DYSGE1 ---
HPI History of Present Illness Chief Complaint: Cold Sx Informant: patient Onset/Context/Timing Onset: Days Context: Gradual Onset Narrative Narrative: Patient is a 30-year-old female presenting with viral symptoms. Patient states started having sore throat a couple days ago that progressed to congestion and then into nasal drainage and cough. States her cough has been productive of sputum. She had associated nausea and posttussive emesis. She is also had diarrhea for the past few days. She notes this morning she started having racing of her heart and tightness in her chest. She is also been experiencing night sweats and chills. She states she said decreased appetite but is been very thirsty lately. She has been taking Mucinex with dextromethorphan and phenylephrine in it as well as ibuprofen. She last had a dose at 9 PM last night. She has had multiple children at home that have been sick. She has a daughter that was just diagnosed with croup this week another son that was diagnosed with an ear infection and another child that also had viral symptoms. She does note increased rest of her life with the recent of her [id number] which was quite unexpected. [facility] Medical History Anxiety Home Medications ondansetron 4 mg PO Q6H PRN #12 tab 10/24/20 [Rx Last Taken Unknown] Allergy/AdvReac Type Severity Reaction Status Date / Time prednisone Allergy Swelling Verified 10/24/20 05:04 Seasonal Allergy Mild unknown Uncoded 10/24/20 05:04 Surgical History H/O dilation and curettage History of placement of ear tubes History of wisdom tooth extraction Status post surgical removal of both fallopian tubes Social History Smoking Status: Never smoker alcohol intake: never ROS ROS ED Constitutional Constitutional ED: Reports chills and sweats; Denies fever(s) Eyes Eyes: Denies blurry vision or change in vision ENT ENT ED: Reports rhinorrhea and sore throat; Denies ear pain Cardiovascular Cardiovascular: Reports racing heartbeat and other Details: Chest tightness ; Denies chest pain or palpitations Respiratory/Chest Respiratory/Chest: Reports cough and sputum; Denies dyspnea or dyspnea on exertion Gastrointestinal Gastrointestinal: Reports diarrhea, nausea and vomiting; Denies abdominal pain Genitourinary Genitourinary ED: Denies dysuria or hematuria Musculoskeletal Musculoskeletal: Reports back pain; Denies arthralgias or myalgias Integumentary Denies rash Neurologic Neurologic: Denies headache(s) or weakness Psychiatric Psychiatric: Denies anxiety or depression EXAM Physical Exam Const Vital Signs: 10/24/20 05:05 10/24/20 05:40 10/24/20 06:05 Temperature 97.8 F 97.7 F L Temperature Source Temporal Temporal Pulse Rate 122 H 100 113 H Respiratory Rate 18 18 24 H Respiratory Effort Normal Respiratory Pattern Tachypnea Blood Pressure 150/102 H 153/93 H Blood Pressure Mean 118 113 Pulse Ox 100 100 Oxygen Delivery Method 10/24/20 06:35 10/24/20 06:49 Temperature 97.7 F L 97.8 F Temperature Source Temporal Temporal Pulse Rate 113 H 108 H Respiratory Rate 24 H 16 Respiratory Effort Respiratory Pattern Blood Pressure 153/93 H 117/67 Blood Pressure Mean 113 83 Pulse Ox 100 99 Oxygen Delivery Method Room Air Positive well nourished and well developed General Appearance ED: well developed HEENT Reports moist mucous membranes Negative for tenderness Eyes PERRL and EOMs intact bilaterally Neck supple and no JVD Chest Wall inspection of chest normal Resp normal respiratory effort and clear to auscultation bilaterally Resp Narrative: Bronchial cough on exam Auscultation: Negative for wheezes or diminished lung sounds Cardio regular rhythm and no murmurs Rate: tachycardic GI normal to inspection, nondistended, normoactive bowel sounds Back/Spine no CVA tenderness Extremity normal to inspection General Extremety ED: Negative for edema General Extremity: Negative for edema Neuro oriented x3 Sensorium / Orientation: alert Psych mental status grossly normal Mood & Affect: anxious Skin no rashes or lesions noted MDM MDM MDM Narrative Medical decision making narrative: Patient evaluated for viral URI symptoms. Her presentation is most consistent with bronchitis from a viral infection. She is tachycardic on triage I did obtain an EKG which shows sinus tachycardia. No ST segment changes and she is not having chest pain just some tightness. She is given albuterol nebulizer treatment with improvement of her symptoms. She is given IV fluids. Lab work is largely unremarkable. Troponin is negative. Do not suspect pericarditis/endocarditis. Urinalysis is consistent with some dehydration. Patient is given IV fluids in the emergency room as well as Toradol and Zofran. On reevaluation she has improvement of her symptoms. She be discharged home with symptomatic treatment including albuterol inhaler, Zofran and instructions to continue take [id number] Mucinex and NSAIDs. She is counseled on return precautions. Her Covid test is negative. Lab Data Labs: Laboratory Results - last 24 hr 10/24/20 10/24/20 10/24/20 06:05 06:20 06:27 WBC 10.7 RBC 4.53 Hgb 12.7 Hct 39.8 MCV 87.9 MCH 28.0 MCHC 31.9 L RDW Std Deviation 41.0 RDW Coeff of Giselle 12.7 Plt Count 256 MPV 9.9 Immature Gran % (Auto) 0.300 Neut % (Auto) 80.2 H Lymph % (Auto) 12.[address] [place] % (Auto) 4.9 Eos % (Auto) 1.8 Baso % (Auto) 0.3 Absolute Neuts (auto) 8.6 H Absolute Lymphs (auto) 1.34 Nucleated RBC % 0 Sodium 139 Potassium 3.7 Chloride 107 Carbon Dioxide 24.0 Anion Gap 8 BUN 5 L Creatinine 0.66 Estim Creat Clear Calc 110.11 Est GFR (MDRD) Af Amer 134 Est GFR (MDRD) Non-Af 111 BUN/Creatinine Ratio 7.6 L Glucose 120 H Calcium 8.5 Total Bilirubin 0.70 AST 19 ALT 22 Alkaline Phosphatase 81 Troponin I < 0.015 Total Protein 8.1 Albumin 3.7 Globulin 4.4 H Albumin/Globulin Ratio 0.8 L Lipase 92 Urine Color Yellow Urine Clarity Clear Urine pH 5.0 Ur Specific [place] 1.020 Urine Protein 15 H Urine Glucose (UA) Normal Urine Ketones 50 H Urine Occult Blood 10 H Urine Nitrite Negative Urine Bilirubin Negative Urine Urobilinogen Normal Ur Leukocyte Esterase 25 H Urine RBC 0 SEEN Urine WBC 0-5 SEEN Ur Squamous Epith Cells 0 SEEN Urine Bacteria 1+ Urine Mucus 2+ Urine Test Negative Radiography Chest X-Ray - ED: 1 View, Read by ED Physician, Read by Radiologist and No Acute Disease Diagnostic Testing: Radiology Impression Chest X-Ray 10/24/20 05:40 IMPRESSION: Normal x-ray examination of the chest. Electronically Signed: Juan Diego Naylor MD at 6:51 EDT , Service support , Rhythm Strip Rhythm Strip: Sinus Tach Rate: 106 Ectopy: None EKG Initial EKG: Attestation: I personally reviewed and interpreted this EKG as follows: Interpretation: Sinus Tachycardia Comments: Sinus tachycardia at a rate of 106 Normal axis Normal intervals Normal ST segments Compared to prior EKG on 08/29/2018 patient is not tachycardic but no other acute changes Discharge Plan Triage Chief Complaint: Cold Sx ED Provider: Teresita Moran Dx/Rx/DC Orders Clinical Impression: Acute bronchitis, Viral URI with cough Instructions: ED URI, Viral W/ Wheezing (Adult) Prescriptions: New ondansetron 4 mg tablet,disintegrating 4 mg PO Q6H PRN (Reason: nausea and vomiting) Qty: 12 RF: 0 Primary Care Provider: New Russell Referrals: New Russell DO [Primary Care Provider] - Activity Restrictions/Additional Instructions: Continue to alternate Tylenol and ibuprofen for symptom relief. Continue take Mucinex. Use albuterol inhaler 1 to 2 puffs every 4-6 hours as needed for cough or wheezing. Disposition Disposition: Home, self care
[2020-10-24 06:05] VITALS: PULSE 113; RESP 24
[2020-10-24] MEDS: Albuterol 2.5 MG/3 ML VIAL.NEB. INHALATION (06:05)
[2020-10-24 06:11] LABS: Red Blood Cells-Urine 0 SEEN /hpf (0-5); Squamous Epithelial Cells - UA 0 SEEN /hpf (5-10)
[2020-10-24 06:12] LABS: Color, Urine Yellow (Yellow); Glucose, Dipstick Normal (Normal); Ketone-Dipstick 50 mg/dl (Negative); Leukocyte Esterase-Dipstick 25 /ul (Negative); Nitrite-Dipstick Negative (Negative); Occult Blood-Urine 10 /ul (Negative); Protein-Dipstick 15 mg/dl (Negative); Urine Bilirubin Dipstick Negative (Negative); Urine Clarity Clear (Clear); Urine Urobilinogen Normal (Normal)
[2020-10-24 06:15] LABS: Internal QC Validated? YES +Cl - CLEAR BKGD; Pregnancy, Urine Negative Negative
[2020-10-24 06:18] LABS: Bacteria 1+ /hpf (None Seen); Mucous, Urine 2+ /hpf (<or=2+); White Blood Cells 0-5 SEEN /hpf (0-5)
[2020-10-24 06:27] LABS: Absolute Lymphocyte Count 1.34 X10^3/uL (0.83-4.51); Absolute Neutrophil Count 8.6 X10^3/uL (2.0-7.7); Basophil# 0.03 X10^3/uL; Basophil% 0.3 % (0-1); Eosinophil# 0.19 X10^3/uL; Eosinophils% 1.8 % (0-5); Hematocrit 39.8 % (37-47); Hemoglobin 12.7 g/dL (12.0-15.0); Lymphocyte # 1.34 X10^3/ul (0.83-4.51); Lymphocyte % 12.5 % (19-41); Mean Corp Hgb Conc 31.9 g/dL (32-36); Mean Corpuscular Volume 87.9 fL (81-99); Mean Platelet Vol. 9.9 fl (6.2-12.0); Monocyte# 0.53 X10^3/uL; Monocyte% 4.9 % (0-10); NRBC Flagged by Analyzer 0 % (0-5); Neutrophil # 8.59 X10^3/uL (2.7-7.7); Neutrophil % 80.2 % (47-70); Platelet Count 256 K/mm3 (150-450); RBC Distribution Width CV 12.7 % (11.6-14.6); Red Blood Count 4.53 M/mm3 (4.2-5.4); White Blood Count 10.7 K/mm3 (4.4-11.0)
[2020-10-24 06:35] VITALS: BP 153/93; PULSE 113; RESP 24; TEMP 36.5; O2SAT 100
[2020-10-24] MEDS: 0.9% Normal Saline 1,000 ML 1000 ML IV (06:46)
[2020-10-24] MEDS: Ketorolac 15 MG/ML Vial IV (06:46)
[2020-10-24] MEDS: Ondansetron 4 MG/2 ML Vial IV (06:47)
[2020-10-24 06:49] VITALS: BP 117/67; PULSE 108; RESP 16; TEMP 36.6; O2SAT 99
[2020-10-24 06:57] LABS: ALB/GLOB Ratio 0.8 RATIO (0.9-2.4); AST(SGOT) 19 U/L (15-37); Alanine Aminotransfer ALT/SGPT 22 U/L (13-56); Albumin, Serum 3.7 g/dL (3.2-5.0); Alkaline Phosphatase 81 U/L (45-117); Anion Gap 8 (5-15); BUN 5 mg/dL (7-18); BUN/Creat Ratio 7.6 RATIO (10-20); Calcium,Total 8.5 mg/dL (8.5-10.1); Chloride 107 mmol/L (98-107); Creatinine, Serum 0.66 mg/dL (0.55-1.02); EST Glomerular Filtration Rate 111 mL/min (>60); Est Glom Filt Rate - Afr Amer 134 mL/min (>60); Estimated Creatinine Clearance 110.11 ml/min; Globulin 4.4 g/dL (2.2-4.2); Glucose 120 mg/dL (74-106); Lipase 92 U/L (73-393); Potassium 3.7 mmol/L (3.5-5.1); Protein, Total 8.1 g/dL (6.4-8.2); Sodium Level 139 mmol/L (136-145)
[2020-10-24 08:07] VITALS: BP 123/87; PULSE 100; RESP 18; TEMP 36.6; O2SAT 100
== END 2020-10-24 08:10 | disposition home or self-care (01) ==
PROVIDERS: Emergency Provider Emergency Medicine; PCP Family Medicine
DX: J20.9 Acute bronchitis, unspecified (principal); J06.9 Acute upper respiratory infection, unspecified
CPT/HCPCS: 71045; 80053; 81001; 81025; 83690; 84484; 85025; 87426; 93005; 94640; 94664; 96374; 96375; 99285; J7030; J2405

== ENCOUNTER 2021-03-17 09:43 | Emergency (ER) | payer BC, MEDICAID, SELFPAY ==
[2021-03-17 09:44] VITALS: BP 144/103; PULSE 88; RESP 18; TEMP 36.6; O2SAT 99; BMI 36.6
--- NOTE | 2021-03-17 09:59 | CT_ITS ---
STUDY: CT BRAIN WITHOUT CONTRAST REASON FOR EXAM: Female, 30 years old. 2 day history of migraine headaches. RADIATION DOSAGE (If Supplied By Facility): CTDIvol = ( 44.99 ) mGy, DLP = ( 762.36 ) mGycm TECHNIQUE: Transaxial CT imaging of the brain was performed without administration of intravenous contrast material. Individualized dose optimization techniques were used for this CT. COMPARISON: No relevant priors. FINDINGS: Normal soft tissue structures. Normal calvarium. Normal size ventricles and extra-axial spaces for the patient''s age. Normal white matter tracts of the cerebral hemispheres. Normal basal ganglia and thalami. Normal brainstem. Normal cerebellum. There is no intracranial hemorrhage. There are no findings of an acute ischemic infarction. There is partial opacification of both maxillary sinuses worse on the right side. Partial opacification of the ethmoid sinuses. Nasal septal deviation towards the left side of the midline. CT/Brain/Head without Contrast IMPRESSION: Sinusitis. Electronically Signed: Jhonathan Butler MD at 10:42 EST , Service support ,
--- NOTE | 2021-03-17 10:00 | EX.ED.VIS.HA ---
HPI History of Present Illness Chief Complaint: Headache Narrative Narrative: 30-year-old female presenting with headache. She states it started last evening. She described initially as her typical migraine. She states she normally would take Excedrin for this and sleep. This morning she thought it was getting better however she started to have the headache returned and she had a couple episodes of vomiting. She still some slight blood tingeing in her sputum. Patient states that she can taste this currently. She has not had any epistaxis but feels that she could smell it as well. She also states that she has an atypical area on the left upper side of her scalp which hurts which is not consistent with her previous migraine. She denies any trauma. [facility] Medical History Anxiety Celiac disease Home Medications cholecalciferol (vitamin D3) 25 mcg (1,000 unit) capsule 25 mcg PO DAILY 10/25/20 [History Last Taken Unknown] mv-min-vit C-ascorb Re-Pqw-Vfm-herb #124 333 mg-1.7 mg chewable tablet 1 tab PO DAILY 10/25/20 [History Last Taken Unknown] multivitamin 1 tab PO DAILY 03/17/21 [History Last Taken Unknown] Allergy/AdvReac Type Severity Reaction Status Date / Time prednisone Allergy Swelling Verified 03/17/21 09:46 Seasonal Allergy Mild unknown Uncoded 03/17/21 09:46 Surgical History H/O dilation and curettage History of placement of ear tubes History of wisdom tooth extraction Status post surgical removal of both fallopian tubes Social History Smoking Status: Never smoker alcohol intake: never ROS ROS ED Constitutional Constitutional ED: Denies chills or fever(s) Eyes Eyes: Denies blurry vision or change in vision ENT ENT ED: Denies rhinorrhea or sore throat Cardiovascular Cardiovascular: Denies chest pain or palpitations Respiratory/Chest Respiratory/Chest: Denies cough or dyspnea Gastrointestinal Gastrointestinal: Reports nausea and vomiting; Denies abdominal pain Genitourinary Genitourinary ED: Denies dysuria or hematuria Musculoskeletal Musculoskeletal: Denies arthralgias or myalgias Integumentary Denies Abrasions or rash Neurologic Neurologic: Reports headache(s); Denies paresthesias Psychiatric Psychiatric: Denies anxiety or depression EXAM Physical Exam Const Vital Signs: 03/17/21 09:44 03/17/21 13:42 Temperature 97.9 F Temperature Source Temporal Pulse Rate 88 Respiratory Rate 18 16 Blood Pressure 144/103 H 115/74 Blood Pressure Mean 116 87 Pulse Ox 99 Oxygen Delivery Method Room Air Positive well nourished General Appearance ED: NAD; Negative for pallor HEENT Reports normocephalic and moist mucous membranes atraumatic Eyes PERRL and EOMs intact bilaterally Neck no lymphadenopathy, supple and no meningeal signs Resp normal respiratory effort Cardio regular rate and regular rhythm Neuro oriented x3, CN's II-XII intact bilaterally and no sensory deficits noted Sensorium / Orientation: awake and alert Motor Exam: strength 5/5 throughout Psych mental status grossly normal Skin General Skin Exam: Negative for jaundice or pallor MDM MDM MDM Narrative Medical decision making narrative: Patient given Reglan and Benadryl. After her CT scan was done she did receive Toradol. There appears to be no intracranial abnormality. I suspect that the read for sinusitis on her CT scan is due to her vomiting and eye watering and not due to infection she has not had any fever or purulent drainage. Patient feels improved after treatment. She will be discharged home in stable condition. Impression: 1. Headache Radiography Diagnostic Testing: Clinical Impression(s) from Imaging Studies Brain CT 03/17/21 09:59 IMPRESSION: Sinusitis. Electronically Signed: Jhonathan Butler MD at 10:42 EST , Service support , Discharge Plan Triage Chief Complaint: Headache ED Provider: Troy Stanley Dx/Rx/DC Orders Instructions: ED Headache Unspecified Prescriptions: No Action cholecalciferol (vitamin D3) 25 mcg (1,000 unit) capsule 25 mcg PO DAILY RF: 0 Airborne (ascorbate sodium) 333-1.7 mg tablet,chewable 1 tab PO DAILY RF: 0 multivitamin Tablet 1 tab PO DAILY RF: 0 Primary Care Provider: New Russell Referrals: New Russell DO [Primary Care Provider] - Disposition Disposition: Home, Self Care Discharge Date/Time: 03/17/21 13:43
[2021-03-17] MEDS: DiphenhydrAMINE 50 MG/ML Syringe 25 MG IV (10:15)
[2021-03-17] MEDS: Metoclopramide 10 MG/2 ML Vial IV (10:15)
[2021-03-17] MEDS: Ketorolac 15 MG/ML Vial IV (12:35)
[2021-03-17 13:42] VITALS: BP 115/74; RESP 16
== END 2021-03-17 13:43 | disposition home or self-care (01) ==
PROVIDERS: Emergency Provider Student in an Organized Health Care Education/Training Program; PCP Family Medicine
DX: R51.9 Headache, unspecified (principal)
CPT/HCPCS: 70450; 96361; 96374; 96375; 99283; J7030; A4216

== ENCOUNTER 2021-06-05 11:59 | Emergency (ER) | payer BC, MEDICAID, SELFPAY ==
[2021-06-05 12:00] VITALS: BP 155/91; PULSE 93; RESP 18; TEMP 36.2; O2SAT 100; BMI 35.7
[2021-06-05 12:09] VITALS: O2SAT 99
--- NOTE | 2021-06-05 12:09 | RAD_ITS ---
STUDY: X-RAY CHEST REASON FOR EXAM: Female, 30 years old. Chest pain TECHNIQUE: Single AP portable view of the chest. COMPARISON: Comparison is made with prior study dated 10/24/2020. FINDINGS: EKG electrodes are seen. The lungs are clear and expanded. Scattered calcified granulomas. There is no demonstrated pleural abnormality. Normal size heart. Normal mediastinum and melinda. Normal visualized pulmonary arteries. Normal visualized aortic arch and descending thoracic aorta. Normal visualized thoracic spine. Normal visualized ribs, clavicles, and shoulders. There is no demonstrated abnormality of the visualized soft tissue structures of the upper abdomen. RAD/Chest 1 View (Portable) IMPRESSION: No acute abnormality is seen. Electronically Signed: Jhonathan Butler MD at 13:13 EST ,
--- NOTE | 2021-06-05 12:09 | EKG12_ITS ---
Test Reason : CP Blood Pressure : / mmHG Vent. Rate : 087 BPM Atrial Rate : 087 BPM P-R Int : 126 ms QRS Dur : 090 ms QT Int : 384 ms P-R-T Axes : 041 020 020 degrees QTc Int : 462 ms Normal sinus rhythm Normal ECG Confirmed by MARLENY ALFORD, JOSIAH ([id number]), newspaper editor managing RODRIGUEZ JIMENEZ ([id number]) on 06/09/2021 10:59:06 AM Referred By: ISABELLA Confirmed By:JOSIAH FARMER MD
--- NOTE | 2021-06-05 12:10 | EDS_ITS ---
HPI History of Present Illness Chief Complaint: Chest Pain Informant: patient and spouse/S.O. Narrative Narrative: Here with significant other evaluation chest tightness initially starting yesterday evening while outside. Symptoms subsided yesterday. However this morning while making breakfast symptoms returned around 830 has been intermittent. Will have tightness and would spread to bilateral chest. Is causing her to cough. Denies tobacco history. No family history of MIs at a young age. Denies history of hypertension, diabetes, hypercholesterolemia. No recent travel or surgeries or immobilizations. No history of PE or DVT. She is not on oral contraceptives. She has had a bilateral salpingectomy. Recent diagnosis celiac disease this past summer. Also reports does have history anxiety have this feels different. Took 2 baby aspirin's around 9:00 after talking to her mother. No history of stress test. Symptoms currently subsiding while in the ED. Prior Similar Symptoms: No Recent Illness/Hospitalization: No CVD Risk Factors: Negative for Hypertension, Diabetes, Hypercholesterolemia, Family History 1' </=55 and Smoking PE Risk Factors: Negative for Recent Travel/Surgery, Recent Immobilization, Prior DVT or PE, Cancer and OCP + Smoking + >/=35 [facility] Medical History Anxiety Celiac disease Home Medications cholecalciferol (vitamin D3) 25 mcg (1,000 unit) capsule 25 mcg PO DAILY 10/25/20 [History Last Taken Unknown] mv-min-vit C-ascorb Ly-Zov-Hxx-herb #124 333 mg-1.7 mg chewable tablet 1 tab PO DAILY 10/25/20 [History Last Taken Unknown] multivitamin 1 tab PO DAILY 03/17/21 [History Last Taken Unknown] Allergy/AdvReac Type Severity Reaction Status Date / Time prednisone Allergy Swelling Verified 06/05/21 12:02 Seasonal Allergy Mild unknown Uncoded 06/05/21 12:02 Surgical History H/O dilation and curettage History of placement of ear tubes History of wisdom tooth extraction Status post surgical removal of both fallopian tubes Social History Smoking Status: Never smoker alcohol intake: never ROS ROS ED Constitutional Constitutional ED: Denies chills, fever(s) or sweats Eyes Eyes: Denies change in vision ENT ENT ED: Denies dysphagia or sore throat Cardiovascular Cardiovascular: Reports chest pain; Denies leg edema, palpitations or racing hea rtbeat Respiratory/Chest Respiratory/Chest: Reports cough; Denies dyspnea or dyspnea on exertion Gastrointestinal Gastrointestinal: Denies abdominal pain, diarrhea, nausea or vomiting Genitourinary Genitourinary ED: Denies dysuria, hematuria or urinary frequency Musculoskeletal Musculoskeletal: Denies back pain, extremity pain or neck pain Integumentary Denies rash or wounds Neurologic Neurologic: Denies headache(s), paresthesias or weakness EXAM Physical Exam Const Vital Signs: 06/05/21 12:00 06/05/21 12:09 06/05/21 12:59 Temperature 97.2 F L Temperature Source Temporal Pulse Rate 93 83 Respiratory Rate 18 18 Respiratory Effort Respiratory Pattern Blood Pressure 155/91 H 136/80 H Blood Pressure Mean 112 98 Pulse Ox 100 99 96 Oxygen Delivery Method Room Air Room Air 06/05/21 13:10 06/05/21 15:06 Temperature Temperature Source Pulse Rate 85 Respiratory Rate 16 Respiratory Effort Normal Non-Labored Respiratory Pattern Normal Blood Pressure 132/80 H Blood Pressure Mean Pulse Ox 99 Oxygen Delivery Method Positive well nourished and well developed General Appearance ED: well developed and NAD HEENT Reports moist mucous membranes normocephalic and atraumatic Eyes PERRL, EOMs intact bilaterally and conjunctivae normal General Eye ED: Yes normal appearance of both eyes Neck no lymphadenopathy and supple General: Negative for tenderness Chest Wall Chest: Negative for tenderness Resp normal respiratory effort and normal air movement Resp Narrative: Symmetric breath sounds Effort and Inspection: symmetric chest movement; Negative for respiratory distress Cardio regular rate, regular rhythm and no murmurs Peripheral Pulses: pulses 2+ throughout GI normal to inspection, nondistended, normoactive bowel sounds and non-tender Palpation: Negative for guarding or rebound tenderness present Back/Spine no CVA tenderness and no thoracic nor lumbar tenderness Extremity normal to inspection General Extremety ED: Negative for edema or tenderness General Extremity: Negative for edema Neuro oriented x3 and no sensory deficits noted Sensorium / Orientation: awake and alert Skin no rashes or lesions noted and no wounds Heart Score History: Slightly/Non-Suspicious ECG: Normal Age: </= 45 years Risk Factors: 1 or 2 Risk Factors Troponin: </= Normal Limit Score: 1 MDM MDM MDM Narrative Medical decision making narrative: Patient's EKG cardiac work-up troponin negative x2. Reevaluation symptoms were improved. Chest x-ray 1 view reviewed by myself and read by radiology with no acute process. Heart score is a 1. Discussed with patient follow-up with her PCP for further testing as an outpatient. Return precautions discussed. Patient is being discharged under pandemic conditions under declared global, national and state disaster activation, with limited medical resources. Patient and community understands this. Results discussed in layman's terms to the patient satisfaction. All questions answered in layman's terms. Patient understands importance of follow-up care as directed. Patient has been instructed to return to the ED immediately if new symptoms, problems, or questions occur. We mutually agree with the plan of disposition. The patient understand that they may call or return with any questions or concerns at any time. Lab Data Attestation: I reviewed the patient's lab results. Labs: Laboratory Results - last 24 hr 06/05/21 06/05/21 06/05/21 12:30 12:30 14:10 WBC 8.2 RBC 4.57 Hgb 13.4 Hct 39.4 MCV 86.2 MCH 29.3 MCHC 34.0 RDW Std Deviation 40.7 RDW Coeff of Giselle 13.1 Plt Count 292 MPV 10.0 Immature Gran % (Auto) 0.200 Neut % (Auto) 72.2 H Lymph % (Auto) 21.3 [place] % (Auto) 5.7 Eos % (Auto) 0.4 Baso % (Auto) 0.2 Absolute Neuts (auto) 5.9 Absolute Lymphs (auto) 1.75 Nucleated RBC % 0 Sodium 138 Potassium 3.8 Chloride 109 H Carbon Dioxide 22.0 Anion Gap 7 BUN 10 Creatinine 0.71 Estim Creat Clear Calc 102.36 Est GFR (MDRD) Af Amer 123 Est GFR (MDRD) Non-Af 102 BUN/Creatinine Ratio 14.2 Glucose 109 H Calcium 8.8 Troponin I High Sens < 3 L 5 Radiography Chest X-Ray - ED: 1 View, Read by ED Physician, Read by Radiologist and No Acute Disease Diagnostic Testing: Clinical Impression(s) from Imaging Studies Chest X-Ray 06/05/21 12:09 IMPRESSION: No acute abnormality is seen. Electronically Signed: Jhonathan Butler MD at 13:13 EST , Discharge Plan Triage Chief Complaint: Chest Pain ED Provider: Charlie Page Dx/Rx/DC Orders Clinical Impression: Chest pain Instructions: ED Chest Pain, Uncertain Cause Prescriptions: No Action cholecalciferol (vitamin D3) 25 mcg (1,000 unit) capsule 25 mcg PO DAILY RF: 0 Airborne (ascorbate sodium) 333-1.7 mg tablet,chewable 1 tab PO DAILY RF: 0 multivitamin Tablet 1 tab PO DAILY RF: 0 Primary Care Provider: New Russell Referrals: New Russell DO [Primary Care Provider] - 3-5 Days Disposition Disposition: Home, Self Care Discharge Date/Time: 06/05/21 15:13
[2021-06-05 12:40] LABS: Absolute Lymphocyte Count 1.75 X10^3/uL (0.83-4.51); Absolute Neutrophil Count 5.9 X10^3/uL (2.0-7.7); Basophil# 0.02 X10^3/uL; Basophil% 0.2 % (0-1); Eosinophil# 0.03 X10^3/uL; Eosinophils% 0.4 % (0-5); Hematocrit 39.4 % (37-47); Hemoglobin 13.4 g/dL (12.0-15.0); Lymphocyte # 1.75 X10^3/ul (0.83-4.51); Lymphocyte % 21.3 % (19-41); Mean Corpuscular Hgb 29.3 pg (27.0-32.0); Mean Corpuscular Volume 86.2 fL (81-99); Monocyte# 0.47 X10^3/uL; Monocyte% 5.7 % (0-10); NRBC Flagged by Analyzer 0 % (0-5); Neutrophil # 5.92 X10^3/uL (2.7-7.7); Neutrophil % 72.2 % (47-70); Platelet Count 292 K/mm3 (150-450); RBC Distribution Width CV 13.1 % (11.6-14.6); RBC Distribution Width SD 40.7 fl (35.1-43.9); Red Blood Count 4.57 M/mm3 (4.2-5.4); White Blood Count 8.2 K/mm3 (4.4-11.0)
[2021-06-05 12:59] VITALS: BP 136/80; PULSE 83; RESP 18; O2SAT 96
[2021-06-05 13:00] LABS: Anion Gap 7 (5-15); BUN 10 mg/dL (7-18); BUN/Creat Ratio 14.2 RATIO (10-20); Calcium,Total 8.8 mg/dL (8.5-10.1); Chloride 109 mmol/L (98-107); Creatinine, Serum 0.71 mg/dL (0.55-1.02); EST Glomerular Filtration Rate 102 mL/min (>60); Est Glom Filt Rate - Afr Amer 123 mL/min (>60); Estimated Creatinine Clearance 102.36 ml/min; Glucose 109 mg/dL (74-106); Potassium 3.8 mmol/L (3.5-5.1); Sodium Level 138 mmol/L (136-145); Troponin-I HS < 3 pg/mL (3.0-54.0)
[2021-06-05 14:35] LABS: Troponin-I HS 5 pg/mL (3.0-54.0)
[2021-06-05 15:06] VITALS: BP 132/80; PULSE 85; RESP 16; O2SAT 99
== END 2021-06-05 15:13 | disposition home or self-care (01) ==
PROVIDERS: Emergency Provider Emergency Medicine; PCP Family Medicine; Visit Provider Emergency Medicine
DX: R07.9 Chest pain, unspecified (principal)
CPT/HCPCS: 71045; 80048; 84484; 85025; 93005; 99284; A4216

== ENCOUNTER 2021-11-10 09:25 | Emergency (ER) | payer BC, MEDICAID, SELFPAY ==
[2021-11-10 09:26] VITALS: BP 141/86; PULSE 81; RESP 18; TEMP 36.6; O2SAT 100; BMI 35.7
--- NOTE | 2021-11-10 09:42 | CT_ITS ---
STUDY: CT BRAIN WITHOUT CONTRAST REASON FOR EXAM: Female, 31 years old. Pain RADIATION DOSAGE (If Supplied By Facility): CTDIvol = ( 47.06 ) mGy, DLP = ( 855.03 ) mGycm TECHNIQUE: Transaxial CT imaging of the brain was performed without administration of intravenous contrast material. Individualized dose optimization techniques were used for this CT. COMPARISON: 03/17/2021 FINDINGS: Normal soft tissue structures. Normal calvarium. Normal size ventricles and extra-axial spaces for the patient''s age. Normal white matter tracts of the cerebral hemispheres. Normal basal ganglia and thalami. Normal brainstem. Normal cerebellum. There is no intracranial hemorrhage. There are no findings of an acute ischemic infarction. Normal visualized paranasal sinuses. CT/Brain/Head without Contrast IMPRESSION: Normal unenhanced CT scan of the brain. Electronically Signed: Irving Gonzales MD at 10:24 EDT ,
--- NOTE | 2021-11-10 09:43 | EDS_ITS ---
HPI History of Present Illness Chief Complaint: Headache Narrative Narrative: 31-year-old female with history of migraines presenting with headache. She states it woke her up from sleep at about 8 AM. She states the only thing different she did yesterday was try a new gluten-free beer. She is not had a fever or neck pain. She does express that she is nauseous. Patient states that normally she can get to her migraines without having come to the emergency room. Patient denies any paresthesias anywhere. She is able to move all 4 extremities. She does not report light and sound sensitivity. Patient also reports that her father had a brain aneurysm at 35. [facility] Medical History Acute maxillary sinusitis, unspecified Anxiety Celiac disease Home Medications NK 11/10/21 [History Last Taken Unknown] Allergy/AdvReac Type Severity Reaction Status Date / Time prednisone Allergy Swelling Verified 11/10/21 09:28 Seasonal Allergy Mild unknown Uncoded 11/10/21 09:28 Surgical History H/O dilation and curettage History of placement of ear tubes History of wisdom tooth extraction Status post surgical removal of both fallopian tubes Social History Smoking Status: Never smoker alcohol intake: never ROS ROS ED Constitutional Constitutional ED: Denies chills or fever(s) Eyes Eyes: Denies change in vision or diplopia ENT ENT ED: Denies rhinorrhea or sore throat Cardiovascular Cardiovascular: Denies chest pain or palpitations Respiratory/Chest Respiratory/Chest: Denies cough or dyspnea Gastrointestinal Gastrointestinal: Reports nausea and vomiting; Denies abdominal pain or constipation Genitourinary Genitourinary ED: Denies dysuria or hematuria Musculoskeletal Musculoskeletal: Denies arthralgias Integumentary Denies abscess or Abrasions Neurologic Neurologic: Reports headache(s); Denies paresthesias or weakness Psychiatric Psychiatric: Denies anxiety or depression Endocrine Endocrinology: Denies polydipsia or polyphagia EXAM Physical Exam Const Vital Signs: 11/10/21 09:26 Temperature 98 F Temperature Source Temporal Pulse Rate 81 Respiratory Rate 18 Blood Pressure 141/86 H Blood Pressure Mean 104 Pulse Ox 100 Oxygen Delivery Method Room Air MDM MDM MDM Narrative Medical decision making narrative: Patient presenting with headache. She states it feels like her migraine was worse than usual. Patient given Reglan and Benadryl. Head CT was obtained which is normal. Patient was reevaluated and still had some headache pain. She is given a dose of Toradol. Patient was reevaluated at 12:08 PM and she is sleeping comfortably. She feels she can go home now. She is given return precautions. Impression: 1. Migraine Radiography Diagnostic Testing: Clinical Impression(s) from Imaging Studies Brain CT 11/10/21 09:42 IMPRESSION: Normal unenhanced CT scan of the brain. Electronically Signed: Irving Gonzales MD at 10:24 EDT , Discharge Plan Triage Chief Complaint: Headache ED Provider: Troy Stanley Dx/Rx/DC Orders Instructions: ED, Migraine (Classical) Prescriptions: No Action NK Primary Care Provider: New Russell Referrals: New Russell DO [Primary Care Provider] - Disposition Disposition: Home, Self Care
[2021-11-10] MEDS: DiphenhydrAMINE 50 MG/ML Syringe 25 MG IV (09:57)
[2021-11-10] MEDS: Metoclopramide 10 MG/2 ML Vial IV (09:57)
[2021-11-10] MEDS: 0.9% Normal Saline 1,000 ML 999 ML IV (09:57)
[2021-11-10] MEDS: Ketorolac 15 MG/ML Vial IV (11:13)
[2021-11-10 12:23] VITALS: PULSE 76; RESP 17; O2SAT 100
== END 2021-11-10 12:24 | disposition home or self-care (01) ==
PROVIDERS: Emergency Provider Student in an Organized Health Care Education/Training Program; PCP Family Medicine; Visit Provider Student in an Organized Health Care Education/Training Program
DX: G43.909 Migraine, unspecified, not intractable, without status migrainosus (principal)
CPT/HCPCS: 70450; 96361; 96374; 96375; 99283

== ENCOUNTER 2022-04-22 17:12 | Emergency (ER) | payer BC, MEDICAID, SELFPAY ==
[2022-04-22 17:13] VITALS: BP 148/101; PULSE 112; RESP 18; TEMP 36.3; O2SAT 100; BMI 34.6
--- NOTE | 2022-04-22 17:21 | EKG12_ITS ---
Test Reason : SOB Blood Pressure : / mmHG Vent. Rate : 090 BPM Atrial Rate : 090 BPM P-R Int : 130 ms QRS Dur : 094 ms QT Int : 368 ms P-R-T Axes : 044 033 030 degrees QTc Int : 450 ms Normal sinus rhythm Normal ECG Confirmed by ERLIN ALFORD, JD ([id number]), pictures editor RODRIGUEZ JIMENEZ ([id number]) on 04/24/2022 10:45:50 AM Referred By: Confirmed By:TEN KERN MD
--- NOTE | 2022-04-22 17:25 | EX.ED.DYSGE1 ---
HPI History of Present Illness Chief Complaint: Shortness of Breath Informant: patient Onset/Context/Timing Onset: Yesterday Context: Gradual Onset Timing: Waxes and wanes Current Severity: Mild Maximum Severity: Moderate Narrative Narrative: Patient presents secondary to concern for aspiration pneumonia. Wednesday evening she had a migraine that triggered a vomiting episode. Yesterday she was coughing up a lot of thick sputum and today has a burning sensation on the right side of her chest. No fever or chills. PFSH PFSH Medical History Anxiety Celiac disease Home Medications benzonatate 200 mg capsule 200 mg PO TID PRN cough #30 caps 03/04/22 [Rx Last Taken Unknown] amoxicillin 875 mg-potassium clavulanate 125 mg tablet 1 tab PO BID #20 tabs 04/22/22 [Rx Last Taken Unknown] clindamycin HCl 150 mg capsule 300 mg PO 4X/DAY #80 caps 04/22/22 [Rx Last Taken Unknown] Allergy/AdvReac Type Severity Reaction Status Date / Time Seasonal Allergies: Uncoded Allergy Mild NEEDS Verified 04/22/22 17:15 FOLLOW-UP prednisone Allergy Swelling Verified 04/22/22 17:15 Surgical History H/O dilation and curettage History of placement of ear tubes History of wisdom tooth extraction Status post surgical removal of both fallopian tubes Social History Smoking Status: Never smoker alcohol intake: never ROS ROS ED Constitutional Constitutional ED: Denies chills or fever(s) Eyes Eyes: Denies change in vision or discharge from eye(s) ENT ENT ED: Denies discharge from eye(s), rhinorrhea or sore throat Cardiovascular Cardiovascular: Reports chest pain; Denies palpitations Respiratory/Chest Respiratory/Chest: Reports cough and other Details: Increased chest pain with deep breath. ; Denies dyspnea Gastrointestinal Gastrointestinal: Reports nausea and vomiting; Denies abdominal pain or diarrhea Genitourinary Genitourinary ED: Denies dysuria Musculoskeletal Musculoskeletal: Denies back pain or extremity pain Integumentary Denies Abrasions or rash Neurologic Neurologic: Denies headache(s) or weakness Psychiatric Psychiatric: Denies anxiety or depression Allergic/Immunologic Allergic/Immunologic ED: Denies lip swelling or urticaria EXAM Physical Exam Const Vital Signs: 04/22/22 17:13 04/22/22 17:41 Temperature 97.4 F L Temperature Source Temporal Pulse Rate 112 H Respiratory Rate 18 Respiratory Effort Normal Non-Labored Respiratory Depth Normal Respiratory Pattern Normal Blood Pressure 148/101 H Blood Pressure Mean 116 Pulse Ox 100 Oxygen Delivery Method Room Air Room Air Positive well nourished and well developed General Appearance ED: well developed HEENT Reports normocephalic and head/scalp atraumatic Eyes PERRL and EOMs intact bilaterally Neck supple Chest Wall inspection of chest normal and palpation of chest normal Resp normal respiratory effort and clear to auscultation bilaterally Cardio regular rate and regular rhythm GI normal to inspection, nondistended, normoactive bowel sounds Palpation: soft Back/Spine no CVA tenderness Extremity normal to inspection Neuro oriented x3 and no sensory deficits noted Sensorium / Orientation: alert Motor Exam: strength 5/5 throughout Psych mental status grossly normal Skin no rashes or lesions noted MDM MDM MDM Narrative Medical decision making narrative: Patient placed on threat monitoring analyst. EKG obtained along with 2 view chest x-ray. Radiography Diagnostic Testing: Clinical Impression(s) from Imaging Studies Chest X-Ray 04/22/22 17:28 IMPRESSION: Suspect left lower lobe pulmonary nodule and correlation with CT of the chest with contrast is recommended. Electronically Signed: Irving Gonzales MD at 17:40 EST , EKG Initial EKG: Attestation: I personally reviewed and interpreted this EKG as follows: Interpretation: Sinus Rhythm (Sinus at 90 with no acute ischemia.) Treatment and Re-Evaluation Narrative: 2 view chest x-ray per my interpretation reveals no obvious pneumothorax or pneumomediastinum. Question of possible very early density in the right lower lobe. Radiology interpretation is reviewed and feels there is no focal infiltrate. There is a very tiny pulmonary nodule the left lung that will need follow-up. Test results are discussed with the patient. She certainly has symptoms consistent with an aspiration pneumonia. This can often take a couple days to show up on x-ray so I will go ahead and cover her with antibiotics. I did discuss the pulmonary nodule with her and advised that she will need a repeat chest x-ray in 6 months or other imaging to ensure no change. Return instructions are given. Discharge Plan Triage Chief Complaint: Shortness of Breath ED Provider: Deysi Sofia Dx/Rx/DC Orders Clinical Impression: Aspiration pneumonia Instructions: ED Pneumonia (Adult) Prescriptions: New amoxicillin-pot clavulanate 875-125 mg tablet 1 tab PO BID Qty: 20 0RF clindamycin HCl 150 mg capsule 300 mg PO 4X/DAY Qty: 80 0RF No Action benzonatate 200 mg capsule 200 mg PO TID PRN (Reason: cough) Qty: 30 0RF Primary Care Provider: New Russell Referrals: New Russell DO [Primary Care Provider] - 10-14 Days if not better Disposition Disposition: Home, Self Care
--- NOTE | 2022-04-22 17:28 | RAD_ITS ---
STUDY: X-RAY CHEST REASON FOR EXAM: Female, 31 years old. cough, CP TECHNIQUE: PA and lateral views of the chest. COMPARISON: 06/05/2021 FINDINGS: 1 cm nodular opacity in the lower left lung as seen on the lateral view and correlation with CT the chest with contrast is recommended. There is no demonstrated pleural abnormality. Normal size heart. Normal mediastinum and melinda. Normal visualized pulmonary arteries. Normal visualized aortic arch and descending thoracic aorta. Normal visualized thoracic spine. Normal visualized ribs, clavicles, and shoulders. There is no demonstrated abnormality of the visualized soft tissue structures of the upper abdomen. RAD/Chest PA and Lateral IMPRESSION: Suspect left lower lobe pulmonary nodule and correlation with CT of the chest with contrast is recommended. Electronically Signed: Irving Gonzales MD at 17:40 EST ,
[2022-04-22] MEDS: Amox/Clavulanate 875 MG Tablet PO (18:06)
[2022-04-22] MEDS: Clindamycin HCl 150 MG Capsule 300 MG PO (18:06)
[2022-04-22 18:09] VITALS: RESP 14
== END 2022-04-22 18:10 | disposition home or self-care (01) ==
PROVIDERS: Emergency Provider Emergency Medicine; PCP Family Medicine; Visit Provider Emergency Medicine
DX: J69.0 Pneumonitis due to inhalation of food and vomit (principal)
CPT/HCPCS: 71046; 93005; 99284

== ENCOUNTER 2022-05-26 02:24 | Emergency (ER) | payer BC, MEDICAID, SELFPAY ==
[2022-05-26 02:25] VITALS: BP 148/100; PULSE 97; RESP 15; TEMP 36.6; O2SAT 100; BMI 33.8
--- NOTE | 2022-05-26 02:34 | EKG12_ITS ---
Test Reason : CP Blood Pressure : / mmHG Vent. Rate : 094 BPM Atrial Rate : 094 BPM P-R Int : 134 ms QRS Dur : 098 ms QT Int : 376 ms P-R-T Axes : 055 053 040 degrees QTc Int : 470 ms Normal sinus rhythm Nonspecific ST abnormality Abnormal ECG Confirmed by MARLENY ALFORD, JOSIAH ([id number]), index editor RODRIGUEZ JIMENEZ ([id number]) on 05/27/2022 2:42:03 PM Referred By: ROMERO Confirmed By:JOSIAH FARMER MD
--- NOTE | 2022-05-26 02:34 | RAD_ITS ---
STUDY: X-RAY CHEST REASON FOR EXAM: Female, 31 years old. Left-sided chest pain. TECHNIQUE: AP portable upright COMPARISON: 04/22/2022 CXR FINDINGS: No apparent pneumothorax, pneumonia, pleural effusion, or edema. Cardiac silhouette, melinda and mediastinal contours are within normal limits. No acute osseous abnormality. No evidence of free air under the diaphragm. RAD/Chest 1 View (Portable) IMPRESSION: Negative chest radiograph. Electronically Signed: Jeff Bee MD at 3:06 EST Reading Location ID and State: [facility] / [place] Tel , Service support ,
--- NOTE | 2022-05-26 02:36 | EDS_ITS ---
HPI History of Present Illness Chief Complaint: Chest Pain Informant: patient Onset/Context/Timing Onset: Yesterday Activity at onset: gradual Timing: Waxes and wanes Quality: Positive for Sharp Location: Left Chest Current Severity: Moderate Maximum Severity: Moderate Narrative Narrative: Patient presents secondary to focal left-sided chest pain that she noted last evening. She states has been persistent throughout the night. She thought was a panic attack but is not getting better. She has increased pain with deep breath or cough. She does not feel short of breath. She did fall on the ice a few days ago but states she landed on her buttocks and did not strike her chest against anything. [facility] Medical History Anxiety Celiac disease Home Medications NK 05/26/22 [History Last Taken Unknown] Allergy/AdvReac Type Severity Reaction Status Date / Time Seasonal Allergies: Uncoded Allergy Mild NEEDS Verified 05/26/22 02:29 FOLLOW-UP prednisone Allergy Swelling Verified 05/26/22 02:29 Surgical History H/O dilation and curettage History of placement of ear tubes History of wisdom tooth extraction Status post surgical removal of both fallopian tubes Social History Smoking Status: Never smoker alcohol intake: never ROS ROS ED Constitutional Constitutional ED: Denies chills or fever(s) Eyes Eyes: Denies change in vision or discharge from eye(s) ENT ENT ED: Denies discharge from eye(s), rhinorrhea or sore throat Cardiovascular Cardiovascular: Reports chest pain; Denies palpitations Respiratory/Chest Respiratory/Chest: Denies cough or dyspnea Gastrointestinal Gastrointestinal: Denies abdominal pain, diarrhea, nausea or vomiting Genitourinary Genitourinary ED: Denies difficulty urinating or dysuria Musculoskeletal Musculoskeletal: Denies back pain or extremity pain Integumentary Denies Abrasions or rash Neurologic Neurologic: Denies headache(s) or weakness Endocrine Endocrinology: Denies polydipsia or polyuria Allergic/Immunologic Allergic/Immunologic ED: Denies lip swelling or urticaria EXAM Physical Exam Const Vital Signs: 05/26/22 02:25 05/26/22 02:27 Temperature 97.8 F Temperature Source Temporal Pulse Rate 97 Respiratory Rate 15 Respiratory Effort Normal Non-Labored Respiratory Pattern Normal Blood Pressure 148/100 H Blood Pressure Mean 116 Pulse Ox 100 Oxygen Delivery Method Room Air Positive well nourished and well developed General Appearance ED: well developed HEENT Reports normocephalic and head/scalp atraumatic Eyes PERRL and EOMs intact bilaterally Neck supple Chest Wall inspection of chest normal Chest Narrative: Focal chest wall tenderness over the left anterior chest wall. No crepitus. No overlying skin change. Resp normal respiratory effort and clear to auscultation bilaterally Cardio regular rate and regular rhythm GI normal to inspection, nondistended, normoactive bowel sounds Palpation: soft Back/Spine no CVA tenderness Extremity normal to inspection Neuro oriented x3 and no sensory deficits noted Sensorium / Orientation: alert Motor Exam: strength 5/5 throughout Psych mental status grossly normal Skin no rashes or lesions noted Heart Score History: Slightly/Non-Suspicious ECG: Normal Age: </= 45 years Risk Factors: No Risk Factors Troponin: </= Normal Limit Score: 0 MDM MDM MDM Narrative Medical decision making narrative: Patient given dose of IV Toradol for pain. Patient placed on front desk monitor. EKG, chest x-ray, lab work ordered. Lab Data Attestation: I reviewed the patient's lab results. Labs: Laboratory Results - last 24 hr 05/26/22 05/26/22 05/26/22 02:32 02:32 02:32 WBC 6.9 RBC 4.85 Hgb 13.9 Hct 42.8 MCV 88.2 MCH 28.7 MCHC 32.5 RDW Std Deviation 42.2 RDW Coeff of Giselle 13.0 Plt Count 292 MPV 9.7 Immature Gran % (Auto) 0.300 Neut % (Auto) 49.3 Lymph % (Auto) 42.6 H [place] % (Auto) 6.4 Eos % (Auto) 1.3 Baso % (Auto) 0.1 Absolute Neuts (auto) 3.4 Absolute Lymphs (auto) 2.93 Nucleated RBC % 0 D-Dimer Quant (PE/DVT) < 0.27 L Sodium 138 Potassium 3.3 L Chloride 106 Carbon Dioxide 23.0 Anion Gap 9 BUN 10 Creatinine 0.63 Estim Creat Clear Calc 114.29 Est GFR (MDRD) Af Amer 140 Est GFR (MDRD) Non-Af 116 BUN/Creatinine Ratio 15.9 Glucose 107 H Calcium 9.2 Troponin I High Sens 5 Radiography Chest X-Ray - ED: 1 View, Read by ED Physician, Normal, Heart, Lungs and Mediastinum Diagnostic Testing: Clinical Impression(s) from Imaging Studies Chest X-Ray 05/26/22 02:34 IMPRESSION: Negative chest radiograph. Electronically Signed: Jeff Bee MD at 3:06 EST , EKG Initial EKG: Attestation: I personally reviewed and interpreted this EKG as follows: Interpretation: Sinus Rhythm (Sinus at 94 with no acute ischemia. No significant change when compared to prior study from April 22, 2022.) Treatment and Re-Evaluation Narrative: Repeat evaluation patient is resting comfortably. She states she does feel mildly improved. Test results are discussed with her. CBC and chemistry studies are unremarkable. Troponin is negative and D-dimer is negative. Chest x-ray per my interpretation reveals no evidence of pneumothorax. No focal infiltrate or acute abnormality noted. Radiology interpretation reviewed. Patient encouraged to take anti-inflammatories 3 times a day for the next 3 days. I believe she likely has focal chest wall pain as it is reproducible in one focal area. Return instructions are given. Discharge Plan Triage Chief Complaint: Chest Pain ED Provider: Deysi Sofia Dx/Rx/DC Orders Clinical Impression: Acute chest wall pain Instructions: ED Chest Wall Strain Prescriptions: No Action NK Primary Care Provider: New Russell Referrals: New Russell DO [Primary Care Provider] - 1 Week if not improving Activity Restrictions/Additional Instructions: As discussed, please take anti-inflammatories 3 times a day for the next 3 days. You can take your next dose at 8:30 AM. Disposition Disposition: Home, Self Care
[2022-05-26 02:40] LABS: Absolute Lymphocyte Count 2.93 X10^3/uL (0.83-4.51); Absolute Neutrophil Count 3.4 X10^3/uL (2.0-7.7); Basophil# 0.01 X10^3/uL; Basophil% 0.1 % (0-1); Eosinophil# 0.09 X10^3/uL; Eosinophils% 1.3 % (0-5); Hematocrit 42.8 % (37-47); Hemoglobin 13.9 g/dL (12.0-15.0); Lymphocyte # 2.93 X10^3/ul (0.83-4.51); Lymphocyte % 42.6 % (19-41); Mean Corp Hgb Conc 32.5 g/dL (32-36); Mean Corpuscular Hgb 28.7 pg (27.0-32.0); Mean Corpuscular Volume 88.2 fL (81-99); Mean Platelet Vol. 9.7 fl (6.2-12.0); Monocyte# 0.44 X10^3/uL; Monocyte% 6.4 % (0-10); NRBC Flagged by Analyzer 0 % (0-5); Neutrophil # 3.39 X10^3/uL (2.7-7.7); Neutrophil % 49.3 % (47-70); Platelet Count 292 K/mm3 (150-450); RBC Distribution Width SD 42.2 fl (35.1-43.9); Red Blood Count 4.85 M/mm3 (4.2-5.4); White Blood Count 6.9 K/mm3 (4.4-11.0)
[2022-05-26] MEDS: Ketorolac 30 MG/ML Syringe IV (02:42)
[2022-05-26 02:56] LABS: D-Dimer Quantitative (DVT/PE) < 0.27 FEU/ug/m (0.27-0.49)
[2022-05-26 02:59] LABS: Anion Gap 9 (5-15); BUN 10 mg/dL (7-18); BUN/Creat Ratio 15.9 RATIO (10-20); Calcium,Total 9.2 mg/dL (8.5-10.1); Chloride 106 mmol/L (98-107); Creatinine, Serum 0.63 mg/dL (0.55-1.02); EST Glomerular Filtration Rate 116 mL/min (>60); Est Glom Filt Rate - Afr Amer 140 mL/min (>60); Estimated Creatinine Clearance 114.29 ml/min; Glucose 107 mg/dL (74-106); Potassium 3.3 mmol/L (3.5-5.1); Sodium Level 138 mmol/L (136-145); Troponin-I HS 5 pg/mL (3.0-54.0)
[2022-05-26 03:29] VITALS: BP 141/88; PULSE 78; RESP 18; O2SAT 97
[2022-05-26] MEDS: Potassium Chloride Oral Tablet 20 MEQ 40 MEQ PO (04:03)
[2022-05-26 04:07] VITALS: BP 135/85; PULSE 70; RESP 17; O2SAT 98
== END 2022-05-26 04:08 | disposition home or self-care (01) ==
LOC: ED 03:24
PROVIDERS: Emergency Provider Emergency Medicine; PCP Family Medicine; Visit Provider Emergency Medicine
DX: R07.89 Other chest pain (principal)
CPT/HCPCS: 71045; 80048; 84484; 85025; 85379; 93005; 96374; 99284; A4216

== ENCOUNTER 2022-11-25 06:53 | Emergency (ER) | payer BC, MEDICAID, SELFPAY ==
[2022-11-25 06:55] VITALS: BP 134/89; PULSE 95; RESP 16; TEMP 36.2; O2SAT 99; BMI 38.2
--- NOTE | 2022-11-25 07:08 | CT_ITS ---
STUDY: CT ABDOMEN AND PELVIS WITH CONTRAST - URINARY TRACT REASON FOR EXAM: Female, 32 years old. Right lower quadrant abdominal pain -- IV PO Contrast. CELIAC DISEASE RADIATION DOSAGE (If Supplied By Facility): CTDIvol = ( 14.03 ) mGy, DLP = ( 1091.60 ) mGycm TECHNIQUE: Oral and amp; IV Gastrografin and amp; 100mL Isovue-300 was administered. Transaxial images were obtained from the dome of the diaphragm to the symphysis pubis in the arterial, nephrographic and excretory phases. Multiplanar coronal and sagittal images were reformatted. Individualized Dose Optimization Techniques Were Used For This CT. COMPARISON: None FINDINGS: Significantly calcified 1 cm nodule seen in the posterolateral periphery of the right lung base. The visualized portions of the heart are within normal limits. Normal liver. The patent portal vein diameter is 14.5 mm. Normal gallbladder and extrahepatic biliary system. Normal spleen. Normal pancreas. Normal bilateral adrenal glands. Normal visualized stomach. Normal small intestine. Normal colon. The appendix is visualized and appears normal. Normal abdominal aorta. No retroperitoneal adenopathy. Normal right kidney. Normal left kidney. No hydronephrosis. Normal urinary bladder. Anteverted is normal in size and contour. Endometrial thickness is roughly 16mm Mildly irregular shape, rim-enhancing 2.25 x 2.15 x 1.65 cm structure in the right ovary is consistent with mature follicle. There is a 1 cm midline supraumbilical defect of the anterior abdominal wall, allowing for a 2.45 x 4 x 2.9 cm herniation of fat. Normal osseous structures. CT/Abdomen/Pelvis WITH Contrast IMPRESSION: 1. 2.25 cm mature follicle in the right ovary. Mild endometrial thickening is likely physiologic. 2. 4 cm fat-containing midline supraumbilical hernia. 3. Calcified 1 cm nodule in the posterolateral right lung base. Electronically Signed: Fritz Gallo MD at 9:26 EDT Reading Location ID and State: [id number] / Unknown , Service support ,
--- NOTE | 2022-11-25 07:09 | EDS_ITS ---
HPI HPI - GI History of Present Illness Chief Complaint: Abd Pain Informant: patient Abdominal Pain/Flank Pain Onset: Yesterday Context: Gradual Onset Timing: Continuous Quality: Dull, Sharp (With ambulation) and - (Pulling sensation) Location: RLQ Worsened by: - (Ambulation) Relieved by: Nothing Nausea/Vomiting/Emesis GI Symptom: Positive for Nausea and Vomiting Onset: Today Quality: Positive for Nonbilious; Negative for Blood streaks, Coffee ground or Hematemesis Episodes: 1 Diarrhea/Melena/Hematochezia GI Symptom: Negative for Diarrhea, Melena or Hematochezia Associated Symptoms Associated Symptoms: Negative for Dysuria, Frequency or Hematuria LMP: 3 weeks ago Narrative Narrative: Patient presents with abdominal pain that began last night. Patient states the pain began in the periumbilical area last night. Patient states she was able to take some Tums and go to bed last night. Patient states that when she woke up today her pain is now in the right lower abdomen. Patient states she has dull aching pain in her right lower quadrant. Patient states that when she walks she has sharp, pulling pain that radiates into her groin. Patient admits to some nausea and vomiting. Patient admits to a decreased appetite. Patient denies any hematemesis or coffee-ground emesis. Patient states her emesis was undigested food from dinner last night. Patient states her last meal was approximately 7 PM last night. Patient denies any diarrhea, melena, or hematochezia. Patient denies any dysuria, frequency, or hematuria. Patient states her last menstrual period was approximately 3 weeks ago. [facility] Medical History Acute pharyngitis, unspecified Anxiety Celiac disease Home Medications cetirizine 10 mg capsule (Zyrtec) 10 mg PO DAILY PRN allergy symptoms 08/03/22 [History Last Taken Unknown] multivitamin 1 tab PO DAILY 08/03/22 [History Last Taken Unknown] hydrocodone-acetaminophen 5-325mg 5mg-325mg 1 tab PO Q6H PRN PRN Pain 3 days #10 TABLETS 11/25/22 [Rx Last Taken Unknown] ondansetron 4 mg disintegrating tablet 4 mg PO Q8H PRN PRN Nausea #10 tabs 11/25/22 [Rx Last Taken Unknown] Allergy/AdvReac Type Severity Reaction Status Date / Time Seasonal Allergies: Uncoded Allergy Mild NEEDS Verified 11/25/22 06:54 FOLLOW-UP prednisone Allergy Swelling Verified 11/25/22 06:54 Surgical History H/O dilation and curettage History of placement of ear tubes History of wisdom tooth extraction Status post surgical removal of both fallopian tubes Social History Smoking Status: Never smoker alcohol intake: never ROS ROS ED Constitutional Constitutional ED: Denies chills or fever(s) Eyes Eyes: Denies blurry vision or change in vision ENT ENT ED: Denies rhinorrhea or sore throat Cardiovascular Cardiovascular: Denies chest pain or palpitations Respiratory/Chest Respiratory/Chest: Denies cough or dyspnea Gastrointestinal Gastrointestinal: Reports abdominal pain, nausea and vomiting Genitourinary Genitourinary ED: Denies dysuria or hematuria Musculoskeletal Musculoskeletal: Denies back pain or neck pain Integumentary Denies abscess or rash Neurologic Neurologic: Denies headache(s) or weakness Allergic/Immunologic Allergic/Immunologic ED: Denies mouth swelling or urticaria EXAM Physical Exam Const Vital Signs: 11/25/22 06:55 Temperature 97.1 F L Temperature Source Temporal Pulse Rate 95 Respiratory Rate 16 Blood Pressure 134/89 H Blood Pressure Mean 104 Pulse Ox 99 Positive well nourished, well developed and obese General Appearance ED: well developed and NAD Nutritional Appearance: obese HEENT Reports moist mucous membranes Neck supple and no JVD Resp normal respiratory effort and clear to auscultation bilaterally Cardio regular rate and regular rhythm GI non-distended Auscultation: hypoactive bowel sounds Palpation: soft and tender RLQ, suprapubic, Obturator sign (Negative) and Rovsing's sign (Negative); Negative for guarding or rebound tenderness present Extremity normal to inspection General Extremety ED: Negative for edema or tenderness General Extremity: Negative for edema Neuro oriented x3, CN's II-XII intact bilaterally and no sensory deficits noted Sensorium / Orientation: alert Motor Exam: strength 5/5 throughout Psych mental status grossly normal Skin no rashes or lesions noted MDM MDM MDM Narrative Medical decision making narrative: Differential diagnosis includes appendicitis, ectopic , ovarian cyst, gastroenteritis, mesenteric adenitis, ureteral calculus, and urinary tract infection. CT scan of the abdomen pelvis will be obtained to assess for appendicitis, ureteral calculus, and ovarian cyst. CBC will be obtained to assess for leukocytosis and anemia. Comprehensive metabolic profile will be obtained to assess for electrolyte abnormality, renal function, and hepatic function. Urinalysis will be obtained to assess for urinary tract infection and hematuria. Serum hCG will be obtained to assess for . History & Record Review Discussion w/independent historian: Patient Lab Data Attestation: I reviewed the patient's lab results. Lab results narrative: CBC was reviewed and was within normal limits. Comprehensive metabolic profile was reviewed and was within normal limits. Serum hCG was reviewed and was negative. Urinalysis was reviewed. There is no evidence of urinary tract infection or hematuria. Labs: Laboratory Results - last 24 hr 11/25/22 11/25/22 11/25/22 07:25 07:27 07:35 WBC 5.7 RBC 4.95 Hgb 14.5 Hct 43.6 MCV 88.1 MCH 29.3 MCHC 33.3 RDW Std Deviation 40.9 RDW Coeff of Giselle 12.7 Plt Count 300 MPV 9.5 Immature Gran % (Auto) 0.200 Neut % (Auto) 59.7 Lymph % (Auto) 30.7 [place] % (Auto) 6.0 Eos % (Auto) 3.2 Baso % (Auto) 0.2 Absolute Neuts (auto) 3.4 Absolute Lymphs (auto) 1.75 Nucleated RBC % 0 Sodium 137 Potassium 3.9 Chloride 109 H Carbon Dioxide 24.0 Anion Gap 4 L BUN 9 Creatinine 0.64 Estim Creat Clear Calc 111.45 Est GFR (MDRD) Af Amer 136 Est GFR (MDRD) Non-Af 112 BUN/Creatinine Ratio 14.0 Glucose 116 H Calcium 8.8 Total Bilirubin 0.30 AST 28 ALT 50 Alkaline Phosphatase 58 Total Protein 8.2 Albumin 3.9 Globulin 4.3 H Albumin/Globulin Ratio 0.9 Serum , Qual NEGATIVE Urine Color Yellow Urine Clarity Clear Urine pH 6.0 Ur Specific [place] 1.010 Urine Protein Negative Urine Glucose (UA) Normal Urine Ketones Negative Urine Occult Blood Negative Urine Nitrite Negative Urine Bilirubin Negative Urine Urobilinogen Normal Ur Leukocyte Esterase Negative Urine RBC 0 SEEN Urine WBC 0 SEEN Ur Squamous Epith Cells 0 SEEN Urine Bacteria 0 SEEN Urine Mucus 0 SEEN Radiography Diagnostic Testing: Clinical Impression(s) from Imaging Studies Abdomen/Pelvis CT 11/25/22 07:08 IMPRESSION: 1. 2.25 cm mature follicle in the right ovary. Mild endometrial thickening is likely physiologic. 2. 4 cm fat-containing midline supraumbilical hernia. 3. Calcified 1 cm nodule in the posterolateral right lung base. Electronically Signed: Fritz Gallo MD at 9:26 EDT Reading Location ID and State: [id number] / Unknown , Service support , CT scan of the abdomen and pelvis was reviewed. There is no evidence of appendicitis, obstruction, or perforation. There is a 2.25 cm follicle in the right ovary with mild endometrial thickening. There is a 4 cm fat-containing supraumbilical hernia in the midline. This was interpreted by the radiologist and was also independently reviewed by myself. Treatment and Re-Evaluation :: Patient was given IV fluids, morphine, and Zofran. Patient was advised of her findings. Patient was given prescriptions for Zofran and [place]. Patient was instructed to follow-up with her primary care physician in 5 to 7 days. Patient was instructed to start with a liquid diet and advance to a bland diet and then to a regular diet if she feels better. Patient was instructed return if worse in any way. Patient understood and was agreeable with the plan. All questions were answered. Discharge Plan Triage Chief Complaint: Abd Pain ED Provider: Israel Prieto Dx/Rx/DC Orders Clinical Impression: Abdominal pain, right lower quadrant Instructions: ED Abdominal Pain Unkn Cause Fem Prescriptions: New hydrocodone-acetaminophen [hydrocodone-acetaminophen] 5-325 mg tablet 1 tab PO Q6H PRN PRN (Reason: Pain) 3 Days Qty: 10 0RF ondansetron [ondansetron] 4 mg tablet,disintegrating 4 mg PO Q8H PRN PRN (Reason: Nausea) Qty: 10 0RF No Action multivitamin Tablet 1 tab PO DAILY Zyrtec 10 mg capsule 10 mg PO DAILY PRN (Reason: allergy symptoms) Primary Care Provider: New Russell Referrals: New Russell DO [Primary Care Provider] - 3-5 Days Disposition Disposition: Home, Self Care
[2022-11-25] MEDS: 0.9% Normal Saline 1,000 ML 1000 ML IV (07:25)
[2022-11-25] MEDS: Ondansetron 4 MG/2 ML Vial IV (07:25)
--- NOTE | 2022-11-25 07:30 | ED.RN ---
rn at bedside to administer morphine. pt states she doesn't want morphine. rn asked if there was something she would like better. pt states she has a high pain tolerance and doesn't need anything right now.
[2022-11-25 07:35] LABS: Bacteria 0 SEEN /hpf (None Seen); Mucous, Urine 0 SEEN /hpf (<or=2+); Red Blood Cells-Urine 0 SEEN /hpf (0-5); Squamous Epithelial Cells - UA 0 SEEN /hpf (5-10); White Blood Cells 0 SEEN /hpf (0-5)
[2022-11-25 07:37] LABS: Color, Urine Yellow (Yellow); Glucose, Dipstick Normal (Normal); Ketone-Dipstick Negative (Negative); Leukocyte Esterase-Dipstick Negative /ul (Negative); Nitrite-Dipstick Negative (Negative); Occult Blood-Urine Negative /ul (Negative); Protein-Dipstick Negative (Negative); Urine Bilirubin Dipstick Negative (Negative); Urine Clarity Clear (Clear); Urine Urobilinogen Normal (Normal)
[2022-11-25 07:39] LABS: Absolute Lymphocyte Count 1.75 X10^3/uL (0.83-4.51); Absolute Neutrophil Count 3.4 X10^3/uL (2.0-7.7); Basophil# 0.01 X10^3/uL; Basophil% 0.2 % (0-1); Eosinophil# 0.18 X10^3/uL; Eosinophils% 3.2 % (0-5); Hematocrit 43.6 % (37-47); Hemoglobin 14.5 g/dL (12.0-15.0); Lymphocyte # 1.75 X10^3/ul (0.83-4.51); Lymphocyte % 30.7 % (19-41); Mean Corp Hgb Conc 33.3 g/dL (32-36); Mean Corpuscular Hgb 29.3 pg (27.0-32.0); Mean Corpuscular Volume 88.1 fL (81-99); Mean Platelet Vol. 9.5 fl (6.2-12.0); Monocyte# 0.34 X10^3/uL; NRBC Flagged by Analyzer 0 % (0-5); Neutrophil # 3.41 X10^3/uL (2.7-7.7); Neutrophil % 59.7 % (47-70); Platelet Count 300 K/mm3 (150-450); RBC Distribution Width CV 12.7 % (11.6-14.6); RBC Distribution Width SD 40.9 fl (35.1-43.9); Red Blood Count 4.95 M/mm3 (4.2-5.4); White Blood Count 5.7 K/mm3 (4.4-11.0)
[2022-11-25 07:51] LABS: Internal QC Validated? YES +Cl - CLEAR BKGD; Pregnancy, Serum, hCG Quali. NEGATIVE Negative
[2022-11-25 07:57] LABS: ALB/GLOB Ratio 0.9 RATIO (0.9-2.4); AST(SGOT) 28 U/L (15-37); Alanine Aminotransfer ALT/SGPT 50 U/L (13-56); Albumin, Serum 3.9 g/dL (3.2-5.0); Alkaline Phosphatase 58 U/L (45-117); Anion Gap 4 (5-15); BUN 9 mg/dL (7-18); Calcium,Total 8.8 mg/dL (8.5-10.1); Chloride 109 mmol/L (98-107); Creatinine, Serum 0.64 mg/dL (0.55-1.02); EST Glomerular Filtration Rate 112 mL/min (>60); Est Glom Filt Rate - Afr Amer 136 mL/min (>60); Estimated Creatinine Clearance 111.45 ml/min; Globulin 4.3 g/dL (2.2-4.2); Glucose 116 mg/dL (74-106); Potassium 3.9 mmol/L (3.5-5.1); Protein, Total 8.2 g/dL (6.4-8.2); Sodium Level 137 mmol/L (136-145)
== END 2022-11-25 10:20 | disposition home or self-care (01) ==
PROVIDERS: Emergency Provider Emergency Medicine; PCP Family Medicine; Visit Provider Emergency Medicine
DX: R10.31 Right lower quadrant pain (principal); R11.2 Nausea with vomiting, unspecified; E66.9 Obesity, unspecified; Z68.38 Body mass index [BMI] 38.0-38.9, adult
CPT/HCPCS: 74177; 80053; 81001; 84703; 85025; 96361; 96374; 99283; J7030; Q9967; A4216; J2405

== ENCOUNTER 2023-02-04 22:27 | Emergency (ER) | payer BC, MEDICAID, SELFPAY ==
[2023-02-04 22:28] VITALS: BP 142/93; PULSE 81; RESP 18; TEMP 36.1; O2SAT 96; BMI 37.3
--- NOTE | 2023-02-04 22:47 | CT_ITS ---
EXAM: CT HEAD WITHOUT INTRAVENOUS CONTRAST CLINICAL INDICATION: headache TECHNIQUE: Multiple axial images were obtained of the head without intravenous contrast. This CT exam was performed using one or more of the following dose reduction techniques: automated exposure control, adjustment of the mA and/or kV according to patient size, and/or use of iterative reconstruction technique. RADIATION DOSE: CTDIvol = 44.99 mGy, DLP = 796.11 mGy-cm COMPARISON: Head CT 11/10/2021 FINDINGS: BRAIN AND EXTRA-AXIAL SPACES: Unremarkable. No intra- or extra-axial hemorrhage. No evidence of acute infarct. No intracranial mass or mass effect. There is preservation of the miranda/white matter interface. Posterior fossa structures are unremarkable. Ventricles are appropriate for age. No hydrocephalus. Basal cisterns are patent. BONES/JOINTS: Unremarkable. No discrete lytic or blastic abnormalities. SINUSES: Right maxillary sinus disease. MASTOID AIR CELLS: Unremarkable. Clear. ORBITS: Visualized globes, extraocular muscles, optic nerves and retrobulbar fat appear unremarkable. CT/Brain/Head without Contrast IMPRESSION: 1. No acute intracranial abnormalities. 2. Right maxillary sinus disease. Electronically Signed: Armin Ramirez MD at 23:44 EDT ,
[2023-02-04] MEDS: Metoclopramide 10 MG/2 ML Vial IV (23:05)
[2023-02-04] MEDS: DiphenhydrAMINE 50 MG/ML Syringe 25 MG IV (23:05)
--- NOTE | 2023-02-05 00:42 | EDS_ITS ---
HPI History of Present Illness Chief Complaint: Headache Narrative Narrative: 32-year-old female presenting with headache. Has a history of migraine and started with a headache today which is sharp on the left side of her upper scalp. States it radiated anterior and posteriorly. He states it felt like something was flowing or pulsatile in her head. Denies any syncopal events. Denies any head trauma. Is not on any blood thinners. She states her family does have history of aneurysms and she believes this was her dad. Her headache is now improved and she states it would be bearable with ibuprofen which she normally treats her migraines with however she is concerned about the type of headache that started in her head. She is never had a flex before. [facility] Medical History Acute pharyngitis, unspecified Anxiety Celiac disease Home Medications cetirizine 10 mg capsule (Zyrtec) 10 mg PO DAILY PRN allergy symptoms 08/03/22 [History Last Taken Unknown] multivitamin 1 tab PO DAILY 08/03/22 [History Last Taken Unknown] hydrocodone-acetaminophen 5-325mg 5mg-325mg 1 tab PO Q6H PRN PRN Pain 3 days #10 TABLETS 11/25/22 [Rx Last Taken Unknown] ondansetron 4 mg disintegrating tablet 4 mg PO Q8H PRN PRN Nausea #10 tabs 11/25/22 [Rx Last Taken Unknown] Allergy/AdvReac Type Severity Reaction Status Date / Time Seasonal Allergies: Uncoded Allergy Mild NEEDS Verified 02/04/23 22:30 FOLLOW-UP prednisone Allergy Swelling Verified 02/04/23 22:30 Surgical History H/O dilation and curettage History of placement of ear tubes History of wisdom tooth extraction Status post surgical removal of both fallopian tubes Social History Smoking Status: Never smoker alcohol intake: never ROS ROS ED Constitutional Constitutional ED: Denies chills, fever(s) or sweats Eyes Eyes: Denies blurry vision or change in vision ENT ENT ED: Denies ear pain or sore throat Cardiovascular Cardiovascular: Denies chest pain, palpitations or racing heartbeat Respiratory/Chest Respiratory/Chest: Denies cough, dyspnea or sputum Gastrointestinal Gastrointestinal: Reports nausea; Denies abdominal pain, constipation, diarrhea or vomiting Genitourinary Genitourinary ED: Denies dysuria, hematuria or urinary frequency Musculoskeletal Musculoskeletal: Denies arthralgias, myalgias or neck pain Integumentary Denies abscess, Abrasions or rash Neurologic Neurologic: Reports headache(s); Denies paresthesias or weakness Psychiatric Psychiatric: Denies anxiety, depression, suicidal ideation or suicidal thoughts Endocrine Endocrinology: Denies polydipsia or polyuria EXAM Physical Exam Const Vital Signs: 02/04/23 22:28 Temperature 96.9 F L Temperature Source Temporal Pulse Rate 81 Respiratory Rate 18 Blood Pressure 142/93 H Blood Pressure Mean 109 Pulse Ox 96 Oxygen Delivery Method Room Air Positive well nourished General Appearance ED: NAD; Negative for pallor HEENT Reports normocephalic and moist mucous membranes atraumatic Eyes PERRL Neck no meningeal signs Resp normal respiratory effort and clear to auscultation bilaterally Cardio regular rate and regular rhythm Extremity normal to inspection Neuro oriented x3, CN's II-XII intact bilaterally and no sensory deficits noted Neuro Narrative: No focal neurologic deficits or lateralizing signs or symptoms. Sensorium / Orientation: awake and alert Speech: speech normal Motor Exam: strength 5/5 throughout Psych mental status grossly normal Skin General Skin Exam: Negative for jaundice or pallor MDM MDM MDM Narrative Medical decision making narrative: Patient presenting with headache. Differential includes migraine, tension headache, intracranial hemorrhage. CT brain was obtained and is negative for acute findings. Patient medicated with Reglan and Benadryl and her headaches now improved. Since patient is better I will discharge her home. I recommended follow-up with neurology and I gave her referral. Return precautions were discussed. Impression: 1. Headache Radiography Diagnostic Testing: Clinical Impression(s) from Imaging Studies Brain CT 02/04/23 22:47 IMPRESSION: 1. No acute intracranial abnormalities. 2. Right maxillary sinus disease. Electronically Signed: Armin Ramirez MD at 23:44 EDT , Discharge Plan Triage Chief Complaint: Headache ED Provider: Troy Stanley Dx/Rx/DC Orders Instructions: ED Headache Unspecified Prescriptions: No Action multivitamin Tablet 1 tab PO DAILY Zyrtec 10 mg capsule 10 mg PO DAILY PRN (Reason: allergy symptoms) hydrocodone-acetaminophen [hydrocodone-acetaminophen] 5-325 mg tablet 1 tab PO Q6H PRN PRN (Reason: Pain) 3 Days Qty: 10 0RF ondansetron [ondansetron] 4 mg tablet,disintegrating 4 mg PO Q8H PRN PRN (Reason: Nausea) Qty: 10 0RF Primary Care Provider: [facility] [place] Referrals: Dominic Mccabe MD [Non-Staff -Ordering Privileges] - As soon as possible New Russell DO [Primary Care Provider] - Disposition Disposition: Home, Self Care
[2023-02-05 00:56] VITALS: RESP 18
== END 2023-02-05 00:58 | disposition home or self-care (01) ==
PROVIDERS: Emergency Provider Student in an Organized Health Care Education/Training Program; PCP Family Medicine; Visit Provider Student in an Organized Health Care Education/Training Program
DX: R51.9 Headache, unspecified (principal)
CPT/HCPCS: 70450; 96374; 96375; 99283

== ENCOUNTER 2023-02-19 20:04 | Emergency (ER) | payer BC, MEDICAID, SELFPAY ==
[2023-02-19 20:06] VITALS: BP 144/88; PULSE 103; RESP 20; TEMP 36.1; O2SAT 100; BMI 36.9
[2023-02-19 20:09] VITALS: BP 144/88; PULSE 103; RESP 20; TEMP 36.1; O2SAT 100
--- NOTE | 2023-02-19 20:20 | EDS_ITS ---
HPI HPI - URI History of Present Illness Chief Complaint: Cold Sx Detail of Chief Complaint: Upper respiratory symptoms that started 5 to 6 days ago Informant: patient Onset/Context/Timing Onset: Days Context: Sudden Onset Timing: Continuous Quality: Upper respiratory symptoms Location: Upper respiratory Current Severity: Mild Maximum Severity: Moderate Worsened by: Not Worsened By Swallowing, Eating Solids or Drinking Liquids Relieved by: Not Relieved By Tylenol or NSAIDs Associated Symptoms Associated Symptoms: Positive for Nasal Congestion, Shortness of Breath, Chest Pain and Productive Cough (Green-colored sputum); Negative for Headache, Sinus Pressure, Myalgias, Nausea, Vomiting or Diarrhea Narrative Narrative: Patient is a 32-year-old woman who is a non-smoker and presents with upper respiratory symptoms that started approximately 1 week ago. She endorses rhinorrhea, congestion. She does endorse cough that is productive of green- colored sputum. She apparently coughed so hard that she had posttussive emesis yesterday. She was seen by her PCP. He felt she had COVID. Patient was displeased with her PCP and [facility]. The rapid COVID and influenza test were both negative. She has no ill contacts. She denies documented fever. She states she was prescribed albuterol MDI. She was not prescribed prednisone because she has adverse reaction to the prednisone. She states it makes her symptoms worse. She has no other complaints. Prior similar symptoms: Yes Recent Illness/Hospitalization: Yes ROS [facility] ED Constitutional Constitutional ED: Denies chills, fever(s), subjective or sweats Eyes Eyes: Denies blurry vision or change in vision ENT ENT ED: Reports rhinorrhea; Denies ear pain or sore throat Cardiovascular Cardiovascular: Reports chest pain; Denies orthopnea, palpitations, paroxysmal nocturnal dyspnea or racing heartbeat Respiratory/Chest Respiratory/Chest: Reports cough, dyspnea and sputum; Denies orthopnea or pa roxysmal nocturnal dyspnea Gastrointestinal Gastrointestinal: Reports vomiting; Denies abdominal pain, constipation or diarrhea Genitourinary Genitourinary ED: Denies dysuria, hematuria or urinary frequency Musculoskeletal Musculoskeletal: Denies arthralgias or myalgias Integumentary Denies rash Neurologic Neurologic: Reports headache(s) [facility] Medical History Acute pharyngitis, unspecified Anxiety Celiac disease Home Medications cetirizine 10 mg capsule (Zyrtec) 10 mg PO DAILY PRN allergy symptoms 08/03/22 [History Last Taken Unknown] multivitamin 1 tab PO DAILY 08/03/22 [History Last Taken Unknown] hydrocodone-acetaminophen 5-325mg 5mg-325mg 1 tab PO Q6H PRN PRN Pain 3 days #10 TABLETS 11/25/22 [Rx Last Taken Unknown] ondansetron 4 mg disintegrating tablet 4 mg PO Q8H PRN PRN Nausea #10 tabs [Rx Last Taken Unknown] albuterol sulfate 90 mcg/actuation aerosol inhaler 2 puff inhalation 6XD PRN shortness of breath or wheezing #6.7 grams 02/18/23 [Rx Last Taken Unknown] triamcinolone acetonide 55 mcg nasal spray aerosol (Nasacort) 2 spray intranasal DAILY #16.9 mL 02/18/23 [Rx Last Taken Unknown] Allergy/AdvReac Type Severity Reaction Status Date / Time Seasonal Allergies: Uncoded Allergy Mild NEEDS Verified 02/19/23 20:05 FOLLOW-UP prednisone Allergy Swelling Verified 02/19/23 20:05 Surgical History H/O dilation and curettage History of placement of ear tubes History of wisdom tooth extraction Status post surgical removal of both fallopian tubes Social History Smoking Status: Never smoker alcohol intake: never EXAM Physical Exam Const Vital Signs: 02/19/23 20:06 02/19/23 20:09 02/19/23 20:34 Temperature 97.0 F L 97.0 F L Temperature Source Temporal Temporal Pulse Rate 103 H 103 H Respiratory Rate 20 H 20 H Respiratory Effort Normal Non-Labored Respiratory Pattern Normal Blood Pressure 144/88 H 144/88 H Blood Pressure Mean 106 106 Pulse Ox 100 100 Oxygen Delivery Method Room Air Room Air Positive well nourished, well developed and obese General Appearance ED: well developed and NAD; Negative for cyanotic, diaphoretic or pallor Nutritional Appearance: obese HEENT Reports moist mucous membranes HEENT Narrative: Ears normal. Nares patent with clear discharge. Posterior pharynx out erythema or exudate. Uvula is midline. normocephalic Eyes PERRL and EOMs intact bilaterally General Eye ED: Negative for pale conjunctiva or scleral icterus Neck no lymphadenopathy, supple, no meningeal signs and no JVD Resp normal respiratory effort Auscultation: wheezes expiratory wheezes and scattered wheezes Cardio S1 normal heart sound and S2 normal heart sound Rate: tachycardic Rhythm: regular rhythm Extremity normal to inspection Neuro oriented x3 and CN's II-XII intact bilaterally Sensorium / Orientation: alert Psych mental status grossly normal Skin General Skin Exam: Negative for jaundice or pallor Lesions: no lesions Rashes: no rashes MDM MDM MDM Narrative Medical decision making narrative: Patient has acute bronchospasm due to acute bronchitis. Patient was informed the fact that she has colored sputum does not mean she has a bacterial infection. Plan is chest x-ray. If chest x-ray reveals pneumonia we will treat with antibiotics. Suspect her pain is due to pleurisy. She states that the practitioner at the [facility] did prescribe albuterol. She did not wait in line because there were many people in front of her. Radiography Chest X-Ray - ED: 2 View (X-rays independent reviewed interpreted by me at 2045. There is no abnormality. Lung parenchyma normal. Cardiac silhouette and size normal. Perihilar region normal. Osseous structures are unremarkable.) Treatment and Re-Evaluation Narrative: Has acute bronchitis with bronchospasm. Treatment is metered-dose inhaler and prednisone prednisone was not prescribed since she reports allergy. Discharge Plan Triage Chief Complaint: Cold Sx ED Provider: Riley Gallegos Dx/Rx/DC Orders Clinical Impression: Acute purulent bronchitis, Acute bronchospasm Instructions: ED Bronchitis, No Antibiotic (Adult) Prescriptions: No Action multivitamin Tablet 1 tab PO DAILY Zyrtec 10 mg capsule 10 mg PO DAILY PRN (Reason: allergy symptoms) triamcinolone acetonide [Nasacort] 55 mcg aerosol,spray 2 spray intranasal DAILY Qty: 16.9 0RF Rx Instructions: administer into each nostril albuterol sulfate 90 mcg/actuation HFA aerosol inhaler 2 puff inhalation 6XD PRN (Reason: shortness of breath or wheezing) Qty: 6.7 0RF hydrocodone-acetaminophen [hydrocodone-acetaminophen] 5-325 mg tablet 1 tab PO Q6H PRN PRN (Reason: Pain) 3 Days Qty: 10 0RF ondansetron [ondansetron] 4 mg tablet,disintegrating 4 mg PO Q8H PRN PRN (Reason: Nausea) Qty: 10 0RF Primary Care Provider: Care Physician,No Primary Referrals: [place] DO [Non-Staff] - 1 Week if not improving Activity Restrictions/Additional Instructions: Recommend 2 puffs of metered-dose inhaler every 2-4 hours while awake for the next 3 days then every 4-6 hours. Recommend 4 ibuprofen tablets every 8 hours or 2 Aleve tablets every 12 hours for the next 3 to 5 days for your chest wall pain. Disposition Disposition: Home, Self Care
--- NOTE | 2023-02-19 20:29 | RAD_ITS ---
STUDY: X-RAY CHEST REASON FOR EXAM: Female, 32 years old. Productive cough and wheezing TECHNIQUE: PA and lateral views of the chest. COMPARISON: 05/26/2022 FINDINGS: 1 cm nodular opacity in the lower right lung worrisome for pulmonary nodule correlation with CT of the chest with contrast is recommended. There is no demonstrated pleural abnormality. Normal size heart. Normal mediastinum and melinda. Normal visualized pulmonary arteries. Normal visualized aortic arch and descending thoracic aorta. Normal visualized thoracic spine. Normal visualized ribs, clavicles, and shoulders. There is no demonstrated abnormality of the visualized soft tissue structures of the upper abdomen. RAD/Chest PA and Lateral IMPRESSION: Suspect right lower lobe pulmonary nodule correlation with CT the chest with contrast is recommended. Electronically Signed: Irving Gonzales MD at 21:07 EDT ,
[2023-02-19 20:53] VITALS: O2SAT 99
== END 2023-02-19 20:54 | disposition home or self-care (01) ==
PROVIDERS: Emergency Provider Emergency Medicine; Visit Provider Emergency Medicine
DX: J20.9 Acute bronchitis, unspecified (principal); E66.9 Obesity, unspecified
CPT/HCPCS: 71046; 99282

== ENCOUNTER → 2023-08-31 | Outpatient (CLI) | payer BC, SELFPAY ==
--- NOTE | 2023-08-31 06:39 | RAD_ITS ---
STUDY: X-RAY CHEST REASON FOR EXAM: Female, 33 years old. Cough TECHNIQUE: PA and lateral views of the chest. COMPARISON: Comparison is made with prior study February 19, 2023. FINDINGS: Stable 1 cm calcified nodule in the peripheral lateral aspect of the right lung base suggestive of a calcified granuloma. There is no demonstrated pleural abnormality. Normal size heart. Normal mediastinum and melinda. Normal visualized pulmonary arteries. Normal visualized aortic arch and descending thoracic aorta. There are mild degenerative changes of the visualized thoracic spine. Normal visualized ribs, clavicles, and shoulders. There is no demonstrated abnormality of the visualized soft tissue structures of the upper abdomen. RAD/Chest PA and Lateral IMPRESSION: Stable calcified granuloma in the peripheral lateral aspect of the right lung base. Electronically Signed: Jhonathan Butler MD at 8:23 EDT ,
== END | disposition home or self-care (01) ==
LOC: RAD 06:38
PROVIDERS: Referring Provider Physician Assistant; Visit Provider Physician Assistant
DX: R05.9 Cough, unspecified (principal)
CPT/HCPCS: 71046

== ENCOUNTER → 2024-04-21 | Outpatient (CLI) | payer BC, SELFPAY ==
--- NOTE | 2024-04-21 17:10 | RAD_ITS ---
STUDY: X-RAY CHEST REASON FOR EXAM: Female, 33 years old. Persistent cough with fever TECHNIQUE: Frontal and lateral views of the chest. COMPARISON: 08/31/2023. FINDINGS: Normal lung volumes. Atelectasis or scarring along the inferior left major fissure. This needs further evaluation with CT scan. Stable nodular density in the right lung base which could also be better evaluated with CT scan. No effusions. Normal size heart. Normal mediastinum and melinda. Normal visualized pulmonary arteries. Normal visualized aortic arch and descending thoracic aorta. Normal visualized thoracic spine. Normal visualized ribs, clavicles, and shoulders. There is no demonstrated abnormality of the visualized soft tissue structures of the upper abdomen. RAD/Chest PA and Lateral IMPRESSION: Atelectasis or scarring along the inferior left major fissure. Stable nodular density in the right lung base. CT scan recommended for better evaluation of these findings. Electronically Signed: Tony Fisher MD at 19:30 EST ,
== END | disposition home or self-care (01) ==
LOC: MTRAD 17:10
PROVIDERS: Referring Provider Physician Assistant Surgical; Visit Provider Physician Assistant Surgical
DX: J20.9 Acute bronchitis, unspecified (principal)
CPT/HCPCS: 71046